=== PATIENT | female | born 1945 | race Caucasian/White ===

== ENCOUNTER 2016-10-27 23:56 | Observation (INO) | payer OTHER ==
[~2016-10-27] VITALS: Ht 162.6 cm; Wt 95.3 kg
[~2016-10-27 23:56] MED LIST: ADVAIR 250-501 EACH; BACTRIM DS TAB1 EACH PO; FUROSEMIDE20 M1; FUROSEMIDE40 M1; JANUVIA100 M1; LANTUS SOL100 UNIT/1; MONTELUKAST SOD10 M1; SIMVASTATIN20 M2; SPIRIVA18 MCG
--- NOTE | 2016-10-28 00:11 | NUR ---
71YO FEMALE TO RM 7 VIA STRETCHER FROM HOME W/CO FEELING WEAK TONITE. EMS REPORT THEY WERE CALLED TO PT'S APT EARLIER THIS EVENING TO ASSIST HER OFF THE TOILET. THEY ALSO STATE THEY WERE CALLED A 2ND TIME AND PT AGAIN WAS UNABLE TO RISE UP OFF THE TOILET, AND WHEN THEY STOOD HER SHE WAS UNBLE TO STAND ON HER OWN. FSBS = 70
[2016-10-28 00:35] LABS: ABSOLUTE BASOPHIL COUNT 0 /CUMM (0.0-0.2); ABSOLUTE EOSINOPHIL COUNT 0 /CUMM (0.0-0.7); ABSOLUTE GRANULOCYTE CT 16.2 /CUMM (1.4-6.5); ABSOLUTE LYMPH COUNT 1.3 /CUMM (1.2-3.4); ABSOLUTE MONOCYTE COUNT 0.8 /CUMM (0.10-0.60); BASOPHIL % 0.1 % (0.0-2.0); EOSINOPHIL % 0.1 % (0-5); GRANULOCYTE % 88.4 % (42.2-75.2); HEMATOCRIT 32.8 % (37-47); MEAN CORPUSCULAR HGB 26.5 PG (27.0-31.0); MEAN CORPUSCULAR HGB CONC 33.2 G/DL (33.0-37.0); MEAN CORPUSCULAR VOLUME 79.9 FL (81.0-99.0); MEAN PLATELET VOLUME 7.2 FL (7.4-10.4); PLATELET COUNT 504 /CUMM (130-400); RBC DISTRIBUTION WIDTH 14.6 % (11.5-14.5); WHITE BLOOD CELL COUNT 18.3 /CUMM (4.8-10.8)
--- NOTE | 2016-10-28 01:24 | NUR ---
URINE TRIO SENT
--- NOTE | 2016-10-28 01:26 | RADIOLOGY REPORT ---
EXAMINATION: XR PORTABLE CHEST CLINICAL INFORMATION: Weakness and cough. COMPARISON: Chest x-ray July 28, 2016. TECHNIQUE: Portable AP view of the chest was obtained. FINDINGS: Low lung volumes. Examination is limited by technique, particularly the retrocardiac region were there is obscuring soft tissue versus airspace disease. No pleural effusion and pneumothorax. Cardiac silhouette size is likely normal accounting for technique. IMPRESSION: Technically limited study demonstrating significantly decreased lung volumes. Probable soft tissues obscure the retrocardiac region and can be correlated with a lateral view to ensure that there is no true pulmonary airspace disease.
--- NOTE | 2016-10-28 02:30 | NUR ---
SLEEPING SHORT PERIODS.
--- NOTE | 2016-10-28 02:46 | ED AMS/SEIZURE/WEAK/DIZZY ---
See Addendum History of Present Illness General Chief Complaint: General Adult Stated Complaint: BIBA GENERAL WEAKNESS Source: patient, old records Exam Limitations: no limitations Allergies Coded Allergies: ketorolac (From TORADOL) (Mild, "FEVER AND CHILLS" 10/28/16) raspberry (UNKNOWN 10/28/16) Uncoded Allergies: TIDE DETERGENT (03/21/11) Reconcile Medications Fluticasone/Salmeterol (Advair 250-50 Diskus) 250 MCG-50 MCG/DOSE BLST.W.DEV ASTHMA (Reported) Furosemide 20 MG TABLET HIGH BLOOD PRESSURE (Reported) Furosemide 40 MG TABLET HIGH BLOOD PRESSURE (Reported) Insulin Glargine,Hum.rec.anlog (Lantus Solostar) 100 UNIT/ML (3 ML) INSULN.PEN DIABETES (Reported) Montelukast Sodium 10 MG TABLET ASTHMA (Reported) Simvastatin (Simvastatin*) 20 MG TABLET HIGH CHOLESTROL (Reported) Sitagliptin Phosphate (Januvia) 100 MG TABLET DIABETES (Reported) Sulfamethoxazole/Trimethoprim (Bactrim Ds Tablet) 800 MG-160 MG TABLET 1 TAB PO BID CELLULITIS Tiotropium Phoenix (Spiriva) 18 MCG CAP.W.DEV ASTHMA (Reported) Triage Note: 71YO FEMALE TO RM 7 VIA STRETCHER FROM HOME W/CO FEELING WEAK TONITE. EMS REPORT THEY WERE CALLED TO PT'S APT EARLIER THIS EVENING TO ASSIST HER OFF THE TOILET. THEY ALSO STATE THEY WERE CALLED A 2ND TIME AND PT AGAIN WAS UNABLE TO RISE UP OFF THE TOILET, AND WHEN THEY STOOD HER SHE WAS UNBLE TO STAND ON HER OWN. FSBS = 70 Triage Nurses Notes Reviewed? yes HPI: Patient presents for evaluation of generalized weakness. Patient states that twice she couldn't get up off the toilet. In addition she is complaining of nasal congestion but denies fever or other cold symptoms, cough, UTI symptoms or abdominal pain. Patient also takes Tylenol typically for bilateral leg and foot pains. (CARLOS GARCIA,VASILIY Gomez) Vital Signs & Intake/Output Vital Signs & Intake/Output Vital Signs Date Time Temp Pulse Resp B/P Pulse O2 O2 Flow FiO2 Ox Delivery Rate 10/29 1323 96.4 84 20 160/90 99 Room Air 10/29 1016 70 20 191/89 96 Nasal 2.0L Cannula 10/29 0838 98.0 74 20 188/90 10/29 0634 98 Nasal Cannula 10/29 0532 97.6 70 18 132/76 96 Nasal 2.0L Cannula 10/29 0259 97.6 68 18 130/78 98 Nasal 2.0L Cannula 10/29 0009 97.3 72 18 126/80 98 Nasal 2.0L Cannula 10/28 2149 97.2 68 18 116/81 100 Room Air 10/28 1858 97.6 97 15 134/64 98 Room Air Room Air 10/28 1618 76 18 139/55 98 Nasal 2.0L Cannula ED Intake and Output 10/29 0000 10/28 1200 Intake Total 1000 Output Total 700 Balance 300 Intake, IV 1000 Output, Urine 700 Patient 210 lb Weight Past History Travel History Traveled to [place] past 21 day No Medical History Any Pertinent Medical History? see below for history Cardiovascular: hypertension Respiratory: asthma Endocrine: diabetes Surgical History Surgical History: non-contributory Psychosocial History What is your primary language Albanian Tobacco Use: Refused to answer Family History Hx Contributory? No (CARLOS GARCIA,VASILIY Gomez) Review of Systems Review of Systems Constitutional: Reports: weakness. EENTM: Reports: no symptoms. Respiratory: Reports: no symptoms. Cardiovascular: Reports: no symptoms. GI: Reports: no symptoms. Genitourinary: Reports: no symptoms. Musculoskeletal: Reports: no symptoms. Skin: Reports: no symptoms. Neurological/Psychological: Reports: no symptoms. Hematologic/Endocrine: Reports: no symptoms. Immunologic/Allergic: Reports: no symptoms. All Other Systems: Reviewed and Negative (CARLOS GARCIA,VASILIY Gomez) Physical Exam Physical Exam General Appearance: SEE BELOW Comments: Gen.: Well-nourished, well-developed, no acute respiratory distress. Head: Normocephalic, atraumatic. Eyes: Normal inspection bilaterally Ears: Normal inspection bilaterally Nose: Normal inspection Throat/mouth : Moist mucosa Neck: Supple, full range of motion, no goiter Heart: Regular rate and rhythm, no murmurs rubs or gallops Lungs: Clear to auscultation bilaterally with normal air entry Chest: Nontender Back: Normal range of motion Abdomen: Soft, nontender, nondistended, normal bowel sounds Extremities: Normal range of motion grossly, equal radial pulses, bilateral lower extremity edema with wraps in place Neurologic: Cranial nerves grossly intact, speech is clear Skin: warm and dry Psychiatric: Calm, cooperative, no apparent delusions or hallucinations Core Measures ACS in differential dx? No CVA/TIA Diagnosis: No Severe Sepsis Present: No Septic Shock Present: No (CARLOS GARCIA,VASILIY Gomez) Progress Differential Diagnosis: anemia, electrolyte imbalance, hypoglycemia, hypoxia, UTI/pyelo Diagnostic Imaging: Discussed w/RAD: Radiology Read. CXR Impression: PATIENT: CHLOE DYKES PRESENT AGE: 71 PATIENT ACCOUNT NO: [id number] : 44 LOCATION: ER ORDERING PHYSICIAN: VASILIY SAN MD SERVICE DATE: 10/28/16 EXAM TYPE: RAD - XRY-PORTABLE CHEST XRAY EXAMINATION: XR PORTABLE CHEST CLINICAL INFORMATION: Weakness and cough. COMPARISON: Chest x-ray July 28, 2016. TECHNIQUE: Portable AP view of the chest was obtained. FINDINGS: Low lung volumes. Examination is limited by technique, particularly the retrocardiac region were there is obscuring soft tissue versus airspace disease. No pleural effusion and pneumothorax. Cardiac silhouette size is likely normal accounting for technique. IMPRESSION: Technically limited study demonstrating significantly decreased lung volumes. Probable soft tissues obscure the retrocardiac region and can be correlated with a lateral view to ensure that there is no true pulmonary airspace disease. DICTATED BY: VASILIY ROSA MD DATE/TIME DICTATED:10/28/16120 SERVICE BAR CASHIER:MAHSA DATE/TIME TRANSCRIBED:10/28/16120 CONFIDENTIAL, DO NOT COPY WITHOUT APPROPRIATE AUTHORIZATION. <Electronically signed in Other Vendor System> SIGNED BY: VASILIY ROSA MD 10/28/16125 Initial ED EKG: NSR, rate (81), POOR R WAVE PROGRESSION Prior EKG: unchanged Comments: 10/28/2016 6:00:42 AM Grisel has had an uneventful emergency department stay. White blood cell count has improved. She has not spiked a fever here in the emergency department. Appears to be no clinical indication of an infection. The cause of the patient's elevated white blood cell count is unclear at this point although she does take inhaled steroid and appears to have been placed on betamethasone and antifungal cream recently. 10/28/2016 7:21:44 AM patient signed out to Dr. Smith at shift slip box changer. 10/29/2016 3:10:10 PM patient accepted in transfer to an extended care facility. (CARLOS GARCIA,VASILIY Gomez) Plan of Care: Orders Procedure Date/time Status Discharge Patient 10/29 1517 Active Skin/Pressure Ulcer Assess (Sk 10/29 0858 Active Theraputic Activities 15 Min 10/29 UNK Complete Gait Training, 15 Min 10/29 UNK Complete PT EVAL LOW COMPLEX 20 MIN 10/29 UNK Complete Intake & Output 10/28 0402 Active FingerStick- Glucose 10/28 0004 Active Radiology Impression: PATIENT: CHLOE DYKES PRESENT AGE: 71 PATIENT ACCOUNT NO: [id number] : 44 LOCATION: ER ORDERING PHYSICIAN: VASILIY SAN MD SERVICE DATE: 10/28/16 EXAM TYPE: RAD - XRY-LUMBOSACRAL SPINE AP & LAT EXAMINATION: XR LUMBOSACRAL SPINE CLINICAL INFORMATION: Low back pain. COMPARISON: None TECHNIQUE: AP and lateral views of the lumbosacral spine were obtained. FINDINGS: There is normal lumbar lordosis. Grade 1 anterolisthesis L4 over L5 is noted. Rest of the vertebral alignment is normal. Loss of L5-S1 and L2-L3 disc height is seen with mild ventral spondylosis. No visible acute fracture, dislocation or lytic process seen. IMPRESSION: Degenerative disc changes L5-S1, L2-L3 disc level. No visible acute fracture, dislocation or lytic process seen. DICTATED BY: KATE GIMENEZ MD DATE/ TIME DICTATED:10/28/16805 SERVICE BAR CASHIER:MAHSA DATE/TIME TRANSCRIBED: 10/28/16805 CONFIDENTIAL, DO NOT COPY WITHOUT APPROPRIATE AUTHORIZATION. < Electronically signed in Other Vendor System> SIGNED BY: KATE GIMENEZ MD 811, PATIENT: CHLOE DYKES PRESENT AGE: 71 PATIENT ACCOUNT NO: [id number] : 44 LOCATION: [facility] ORDERING PHYSICIAN: SEAMUS SMITH MD SERVICE DATE: 10/28/16 EXAM TYPE: CAT - CT LUMB SPINE W IV CONTRAST EXAMINATION: CT LUMBAR SPINE WITH CONTRAST CLINICAL INFORMATION: Low back pain, fever and leukocytosis. COMPARISON: Lumbar spine exam 10/28/2016 TECHNIQUE: 2.5 mm thin axial and 2 mm thin reconstructed sagittal and coronal images of lumbar spine were obtained following IV 93 mL Optiray 320. DLP: 1078 mGy-cm FINDINGS: On sagittal reconstructed images there is normal lumbar lordosis. There is a grade 1 anterolisthesis L4 over L5. Rest of the vertebral alignment is normal. Loss of L5-S1 disc height with vacuum disc phenomena is noted at L5-S1 and L2-L3 disc level. The L1-L2, L2-L3 and L3-L4 disc levels are unremarkable. No focal disc herniation, spinal stenosis abnormality seen. The neural foramina are widely patent. At L4-L5 disc level there is a broad-based diffuse pseudo disc bulge with bilateral facet joint and ligamentum flavum hypertrophy resulting in mild to moderate canal stenosis. The neural foramina however appear patent. At L5-S1 disc level there is no signal disc bulge, herniation or spinal stenosis. The neural foramina are patent. The paravertebral soft tissues are normal. No abnormal enhancing mass or abscess seen. There is no lytic or sclerotic process identified. Incidentally noted is a vertical bilateral sacral stress fracture involving S1 and S2 vertebra. IMPRESSION: Bilateral S1 and S2 stress fractures of the sacrum. Recommend bone scan 4 confirmation. Grade 1 anterolisthesis L4 over L5 with diffuse pseudo disc bulge resulting in moderate canal stenosis. There is bilateral facet joint arthropathy at this disc level. Degenerative disc changes with vacuum disc phenomena at L5-S1 disc level. DICTATED BY: KATE GIMENEZ MD DATE/TIME DICTATED: 10/28/161041 SERVICE BAR CASHIER:MAHSA DATE/TIME TRANSCRIBED:10/28/161041 CONFIDENTIAL, DO NOT COPY WITHOUT APPROPRIATE AUTHORIZATION. <Electronically signed in Other Vendor System> SIGNED BY: KATE GIMENEZ MD 10/28/16 1055 Hand-Off Endorsed To: JOYCE HORTON MD Endorsed Time: 190 Pending: consult (PT, CASE MANAGEMENT) Comments: PT STILL HAS SEVERE LOW BACK PAIN. SHE HAS LEUKOCYTOSIS. SHE STATES THAT HER LEGS STILL FEEL VERY WEAK. THERE WAS NO RELIEF FROM MORPHINE. WILL CHECK CT SCAN. (JEANNE GARCIA,SEAMUS Chu) Hand-Off Endorsed To: VASILIY SAN MD Endorsed Time: 07 Pending: consult (JOYCE HORTON MD) Departure Departure Disposition: ACUTE REHAB FACILITY Condition: Stable Clinical Impression Primary Impression: Back pain Secondary Impressions: Anemia Qualifiers: Anemia type: unspecified type Qualified Code: D64.9 - Anemia, unspecified Leukocytosis Qualifiers: Leukocytosis type: unspecified Qualified Code: D72.829 - Elevated white blood cell count, unspecified Referrals: HELGA GARCIA,EMMA Ferreira (PCP/Family) Additional Instructions: Follow-up with your primary care doctor this week for monitoring of your elevated white blood cell count (hematology referral might be necessary). Maintain a good fluid intake. Return if fever or any other concerns or worsening. Please note that there might be incidental findings in your evaluation that are unrelated to the current emergency department visit. Please notify your primary care doctor about this emergency department visit in order to obtain and review all of the testing performed so that these incidental findings can be monitored as needed. If you had an x-ray performed, please understand that some fractures may not be seen on the initial set of x-rays. If your symptoms persist you might need a repeat set of x-rays to check for such a fracture. If you had a laceration evaluated, please understand that foreign bodies such as glass or wood may not be visible to the naked eye or on plain x-rays. If the wound becomes red, swollen, increasingly more painful or if there is any drainage from the wound, please have it reevaluated by a physician for the possibility of a retained foreign body. Thank you for choosing the [facility] Emergency Department for your care. It was a pleasure to serve you today. Vasiliy San M.D. [facility] Departure Forms: Customer Survey General Discharge Information (CARLOS GARCIA,VASILIY Gomez) ED Attending Observation Observation Discharge: I have reevaluated CHLOE DYKES on 10/29/16 at 1510. The patient is: (): Stable for discharge ([x]): To be admitted to Nursing Floor (): To be placed in Observation on Nursing Floor (): For transfer to other facility The patient was being observed for intractable pain, generalized weakness As a result of that observation, I have determined the patient is stable for transfer to a nursing facility/rehabilitation center. (CARLOS GARCIA,VASILIY Gomez) Initial Observation Note: I have seen and personally examined CHLOE DYKES on 10/28/16 at 1154. I agree with the current emergency department documentation. The disposition (admission or discharge) is uncertain at this time, she needs a period of observation for the following reason(s): [Patient has stress fractures through S1 and S2. Patient will require PT evaluation. Patient is requiring IV pain medications. Patient is a diabetic so we will need to follow her fingersticks.] The ED Nurse caring for this patient has been personally informed as to what the patient is being observed for. Observation Re-Evaluation: I have reevaluated CHLOE DYKES on 10/28/16 at 1710. The physical findings that support the continued need to observe this patient include [PT CONTINUES TO HAVE BACK PAIN BUT MORE COMFORTABLE IN HOSPITAL BED. LUNGS CTA B/L, CARDIAC RRR, NO MURMUR.]. (JEANNE GARCIA,SEAMUS Chu) Thank you for choosing the [facility] Emergency Department for your care. It was a pleasure to serve you today. Vasiliy San M.D. [facility] Departure Forms: Customer Survey General Discharge Information (CARLOS GARCIA,VASILIY Gomez) Departure Disposition: STILL A PATIENT Clinical Impression Primary Impression: Sacral fracture, closed Secondary Impressions: Anemia Qualifiers: Anemia type: unspecified type Qualified Code: D64.9 - Anemia, unspecified Leukocytosis Qualifiers: Leukocytosis type: unspecified Qualified Code: D72.829 - Elevated white blood cell count, unspecified (JEANNE GARCIA,SEAMUS Chu) ED Attending Observation Initial Observation Note: I have seen and personally examined CHLOE DYKES on 10/28/16 at 1154. I agree with the current emergency department documentation. The disposition (admission or discharge) is uncertain at this time, she needs a period of observation for the following reason(s): [Patient has stress fractures through S1 and S2. Patient will require PT evaluation. Patient is requiring IV pain medications. Patient is a diabetic so we will need to follow her fingersticks.] The ED Nurse caring for this patient has been personally informed as to what the patient is being observed for. Observation Re-Evaluation: I have reevaluated CHLOE DYKES on 10/28/16 at 1710. The physical findings that support the continued need to observe this patient include [PT CONTINUES TO HAVE BACK PAIN BUT MORE COMFORTABLE IN HOSPITAL BED. LUNGS CTA B/L, CARDIAC RRR, NO MURMUR.]. (JEANNE GARCIA,SEAMUS Chu)
--- NOTE | 2016-10-28 03:55 | NUR ---
AWAKE. CO BACK PAIN 6/10 AND FEELING HUNGRY.
--- NOTE | 2016-10-28 04:04 | NUR ---
SLEEPING AT THIS TIME.
--- NOTE | 2016-10-28 04:42 | NUR ---
REPEAT CBC SENT TO LAB. PT SLEEPING WITH REGULAR RR AT THIS TIME. NO ACUTE DISTRESS NOTED.
[2016-10-28 04:59] LABS: ABSOLUTE BASOPHIL COUNT 0.1 /CUMM (0.0-0.2); ABSOLUTE EOSINOPHIL COUNT 0 /CUMM (0.0-0.7); ABSOLUTE GRANULOCYTE CT 13.4 /CUMM (1.4-6.5); ABSOLUTE LYMPH COUNT 2.1 /CUMM (1.2-3.4); ABSOLUTE MONOCYTE COUNT 1.4 /CUMM (0.10-0.60); BASOPHIL % 0.3 % (0.0-2.0); EOSINOPHIL % 0.1 % (0-5); GRANULOCYTE % 79.3 % (42.2-75.2); HEMATOCRIT 28.6 % (37-47); MEAN CORPUSCULAR HGB 26.3 PG (27.0-31.0); MEAN CORPUSCULAR HGB CONC 32.6 G/DL (33.0-37.0); MEAN CORPUSCULAR VOLUME 80.8 FL (81.0-99.0); MEAN PLATELET VOLUME 7.1 FL (7.4-10.4); PLATELET COUNT 459 /CUMM (130-400); RBC DISTRIBUTION WIDTH 14.7 % (11.5-14.5); RED BLOOD CELL CT 3.54 /CUMM (4.20-5.40); WHITE BLOOD CELL COUNT 16.9 /CUMM (4.8-10.8)
--- NOTE | 2016-10-28 06:42 | NUR ---
FINGERSTICK GLUCOSE LEVEL READING 80
--- NOTE | 2016-10-28 06:49 | NUR ---
ATTEMPTED TO SIT PT. WITH ANY CHANGE IN POSITION, PT SCREAMS THAT SHE IS HAVING PAIN "JUST ABOVE MY BUTTOCKS" DR GONZALEZ AWARE. PT DENIES ANY FALL.
--- NOTE | 2016-10-28 07:27 | NUR ---
PT GIVEN MORPHINE PER EMAR.
--- NOTE | 2016-10-28 07:35 | NUR ---
CARE ASSUMED BY THIS RN NOW. ATTEMPTED TO ASSESS PATIENT AND TURN AND REPOSITION, PT SCREAMING AND NOT REDIRECTABLE. REFUSING TO LET THIS RN MOVE PATIENT FOR FULL BODY ASSESSMENT. DR. ANGEL AWARE OF PT'S PAIN.
--- NOTE | 2016-10-28 07:38 | NUR ---
PT TO XRAY VIA STRETCHER NOW.
--- NOTE | 2016-10-28 08:04 | NUR ---
PT PROVIDED BREAKFAST TRAY. PT REPORTS STILL HAVING PAIN.
--- NOTE | 2016-10-28 08:12 | RADIOLOGY REPORT ---
EXAMINATION: XR LUMBOSACRAL SPINE CLINICAL INFORMATION: Low back pain. COMPARISON: None TECHNIQUE: AP and lateral views of the lumbosacral spine were obtained. FINDINGS: There is normal lumbar lordosis. Grade 1 anterolisthesis L4 over L5 is noted. Rest of the vertebral alignment is normal. Loss of L5-S1 and L2-L3 disc height is seen with mild ventral spondylosis. No visible acute fracture, dislocation or lytic process seen. IMPRESSION: Degenerative disc changes L5-S1, L2-L3 disc level. No visible acute fracture, dislocation or lytic process seen.
--- NOTE | 2016-10-28 09:52 | NUR ---
PT TO CT SCAN VIA STRETCHER AT THIS TIME.
--- NOTE | 2016-10-28 10:55 | CT SCAN REPORT ---
EXAMINATION: CT LUMBAR SPINE WITH CONTRAST CLINICAL INFORMATION: Low back pain, fever and leukocytosis. COMPARISON: Lumbar spine exam 10/28/2016 TECHNIQUE: 2.5 mm thin axial and 2 mm thin reconstructed sagittal and coronal images of lumbar spine were obtained following IV 93 mL Optiray 320. DLP: 1078 mGy-cm FINDINGS: On sagittal reconstructed images there is normal lumbar lordosis. There is a grade 1 anterolisthesis L4 over L5. Rest of the vertebral alignment is normal. Loss of L5-S1 disc height with vacuum disc phenomena is noted at L5-S1 and L2-L3 disc level. The L1-L2, L2-L3 and L3-L4 disc levels are unremarkable. No focal disc herniation, spinal stenosis abnormality seen. The neural foramina are widely patent. At L4-L5 disc level there is a broad-based diffuse pseudo disc bulge with bilateral facet joint and ligamentum flavum hypertrophy resulting in mild to moderate canal stenosis. The neural foramina however appear patent. At L5-S1 disc level there is no signal disc bulge, herniation or spinal stenosis. The neural foramina are patent. The paravertebral soft tissues are normal. No abnormal enhancing mass or abscess seen. There is no lytic or sclerotic process identified. Incidentally noted is a vertical bilateral sacral stress fracture involving S1 and S2 vertebra. IMPRESSION: Bilateral S1 and S2 stress fractures of the sacrum. Recommend bone scan 4 confirmation. Grade 1 anterolisthesis L4 over L5 with diffuse pseudo disc bulge resulting in moderate canal stenosis. There is bilateral facet joint arthropathy at this disc level. Degenerative disc changes with vacuum disc phenomena at L5-S1 disc level.
--- NOTE | 2016-10-28 11:10 | NUR ---
PT MEDICATED WITH VALIUM PER EMAR. PT TOLERATED WELL.
--- NOTE | 2016-10-28 11:33 | NUR ---
Case Mgmnt TSF: Preemptively doing paperwork for possibility of STR. Once all testing and labs are back, I will speak with Dr. Smith and patient about plan of care going forward. Patient unable to even move with nursing due to pain. I have completed: Attestation (faxed & confirmation), Common mikayla and CM assessment. I am continuing to work on other paperwork. CM continuing to follow.
--- NOTE | 2016-10-28 11:37 | NUR ---
PT PROVIDED LUNCH TRAY.
--- NOTE | 2016-10-28 11:45 | NUR ---
Case Mgmnt TSF: I went in and introduced myself to patient. I gave her a brochure with my card in it. I also gave her a list of facilities in case we do need to send her to a STR. Patient's [facility]: [facility]) [facility]; 2) [facility] and 3) [facility]. I am completing other paperwork in case STR is recommended. Patient is in agreement. CM continuing to follow.
--- NOTE | 2016-10-28 11:46 | NUR ---
POC: PT TO BE AN ED OBSERVATION FOR PAIN MANAGEMENT TO BE UNDER CONTROL FOR PT EVAL IN THE MORNING AND POTENTIAL TO BE PLACED IN SHORT TERM REHAB.
--- NOTE | 2016-10-28 13:10 | NUR ---
Case Mgmnt TSF: I went back in to see patient. She had friends in the room with her. Patient would like to change her possible STR choices. New choices are as follows: 1) [facility], [facility]) [facility], 3) [facility]. CM continuing to follow.
--- NOTE | 2016-10-28 13:27 | NUR ---
PT MEDICATED WITH DAILY MEDS PER EMAR.
--- NOTE | 2016-10-28 15:43 | NUR ---
PT MOVED TO HOSPITAL BED. TOLERATED WELL. PT MEDICATED WITH LANTUS PER EMAR.
--- NOTE | 2016-10-28 16:17 | NUR ---
PT MEDICATED WITH 1MG IV DIALUDID PER ORDER AT THIS TIME FOR PAIN 06/11.
--- NOTE | 2016-10-28 17:30 | NUR ---
Case Mgmnt TSF: I have completed MIMR and remaining paperwork for patient. We are pending state approval and then we have to get a facility to accept patient. We are also pending a PT eval for patient. We will continue to follow tomorrow. We will update nursing and MD.
--- NOTE | 2016-10-28 18:59 | NUR ---
PT MEDICATED WITH PERCOCET PER ORDER AT THIS TIME. PT REPOSITONED IN BED AND WATCHING TV.
--- NOTE | 2016-10-28 20:01 | NUR ---
PT RESTING ON STRETCHER WATCHING TELEVISION. NO APPARENT DISTRESS NOTED.
--- NOTE | 2016-10-28 22:02 | NUR ---
PHARMACY CALLED FOR MEDICATION.
--- NOTE | 2016-10-29 00:09 | NUR ---
PT RESTING ON BED AND REQUESTS FOR TELEVISION TO BE TURNED OFF AT THIS TIME.
--- NOTE | 2016-10-29 02:59 | NUR ---
PT REPOSITIONED IN BED.
--- NOTE | 2016-10-29 05:32 | NUR ---
PT RESTING ON BED. NORMAL RR NOTED. WILL CONTINUE TO MONITOR.
--- NOTE | 2016-10-29 07:15 | NUR ---
ASSUMED CARE, PT SLEEPING, RESPIRATIONS NON-LABORED.
--- NOTE | 2016-10-29 08:20 | NUR ---
AWAKE, REQUESTING BEDPAN, HAS DIFFICULTY TURNING IN BED, HAS RED, TOILET SHAPED RING WITH AREAS OF BROWN NOTED ON BUTTOCKS, UPPER THIGHS, HAS 3/4 INCH OPEN AREA ON LEFT BUTTOCK, AREA IS PINK. BARRIER CREAM APPLIED TO BUTTOCKS.
--- NOTE | 2016-10-29 08:44 | NUR ---
REQUESTING MEDICATION FOR PAIN. GIVEN 1 PERCOCET CRUSHED IN APPLESAUCE.
--- NOTE | 2016-10-29 09:00 | NUR ---
PT CONFUSED TO DATE, THINKS IT IS OCTOBER 31. RE-ORIENTED TO DATE. UNDERSTANDS NEED FOR SHORT TERM REHAB.
--- NOTE | 2016-10-29 09:15 | NUR ---
BILATERAL LOWER LEG DRESSINGS INTACT, STATES THEY ARE CHANGED WEEKLY BY HER VASCULAR SURGEON.
--- NOTE | 2016-10-29 09:15 | NUR ---
REFUSING DRESSING CHANGE AT THIS TIME.
--- NOTE | 2016-10-29 09:25 | NUR ---
PHYSICAL THERAPY AT BEDSIDE FOR EVAL
--- NOTE | 2016-10-29 09:29 | NUR ---
PHYSICAL THERAPY HERE TO EVALUATE.
--- NOTE | 2016-10-29 09:57 | NUR ---
PT REQUESTING BENADRYL, STATES SHE TAKES IT EVERYDAY FOR ALLERGIES, DR. GONZALEZ AWARE.
--- NOTE | 2016-10-29 10:00 | NUR ---
AM MEDS GIVEN.
--- NOTE | 2016-10-29 10:22 | NUR ---
CASE MANAGEMENT (RYLEE) SPEAKING WITH PATIENT.
--- NOTE | 2016-10-29 10:33 | NUR ---
CASE MANAGEMENT-PT HAS BEEN ACCEPTED AT [facility]. PATIENT REALLY WANTED [facility] BUT I EXPLAINED TO HER THAT THEY CURRENTLY DO NOT HAVE AN AVAILBLE BED FOR HER. HAVE PLACED CALL TO [facility] SO PATIENT CAN ACCEPT HER BED. WILL AWAIT CALL BACK AND KEEP ALL INFORMED.
--- NOTE | 2016-10-29 10:34 | NUR ---
CASE MANAGEMENT-ASKED PATIENT IF I COULD CALL HER SON AND SHE STATED THAT I COULD NOT BECAUSE HE IS NOT INVOLVED IN HER CARE.
--- NOTE | 2016-10-29 11:49 | NUR ---
VOIDED IN BEDPAN, 450 ML. MEDICATED FOR PAIN WITH DILAUDID 1 MG IV.
--- NOTE | 2016-10-29 12:32 | NUR ---
MULTIPLE FAMILY MEMBERS AT BEDSIDE, PT STATING PAIN IS IMPROVED, LAUGHING AND TALKING WITH FAMILY MEMBERS.
--- NOTE | 2016-10-29 14:31 | NUR ---
VOIDED ON BEDPAN, 500 ML.
--- NOTE | 2016-10-29 14:45 | NUR ---
Case Mgmnt TSF: Patient had accepted bed at [facility] earlier. I went in and let patient know that we would be sending her over to the facility shortly. Patient is aware and I asked if I could call her son to update and she did not want him updated. She states that her friend Parmjit is aware as he was here earlier this morning. Envelope put together, w10 filled out and all cm portion in envelope. [place] is going to call report to facility. Patient will be set up for stretcher by unit manager rn. I also updated admissions that patient had and appointment this on 11/01 @ 0900am with Dr. Medina (vascular). I wrote the information on the W10 and updated Caity PEARCE and she will also give information verbally for report. CM portion complete.
[2016-10-29 15:53] VITALS: BP 143/96
--- NOTE | 2016-10-29 16:01 | NUR ---
[facility] BOOKED FOR TRANSPORT TO [facility].
--- NOTE | 2016-10-29 16:05 | NUR ---
REPORT TO [facility].
== END 2016-10-29 16:45 ==
LOC: ERH 23:56 → ERHI 10-28 11:49
PROVIDERS: Emergency Medicine; ADMIT Emergency Medicine
DX: R53.1 Weakness (principal); M51.86 Other intervertebral disc disorders, lumbar region; M48.06 Spinal stenosis, lumbar region; D64.9 Anemia, unspecified; D72.829 Elevated white blood cell count, unspecified; I10 Essential (primary) hypertension; J45.909 Unspecified asthma, uncomplicated; E11.9 Type 2 diabetes mellitus without complications
CPT/HCPCS: 72100; 81001; 87804; 87804-59; 93005; 93010; 96374; 96375; 96376; 97116-GP; 97161-GP; 97530-GP; G0378; G8978-GP; G8979-GP; G8980-GP; J0131; J1885; J2405; J3360; J3490

== ENCOUNTER 2018-01-11 17:16 | Inpatient (IN) | payer OTHER ==
[~2018-01-11] VITALS: Ht 157.5 cm; Wt 105.7 kg
[~2018-01-11 17:16] MED LIST changes: -FUROSEMIDE40 M1; +FUROSEMIDE40 M1 PO; -JANUVIA100 M1; +JANUVIA100 M1 PO; -LANTUS SOL100 UNIT/1; +LANTUS SOL100 UNIT/1 SC; -MONTELUKAST SOD10 M1; +MONTELUKAST SOD10 M1 PO; +PREDNISONE10 M2 PO; -SIMVASTATIN20 M2; +SIMVASTATIN20 M2 PO; -SPIRIVA18 MCG; +SPIRIVA18 MCG IH; +VENTOLIN HFA18 GM INH; +ZITHROMAX500 M2 PO
--- NOTE | 2018-01-11 18:04 | ED GENERAL ADULT ---
History of Present Illness General Chief Complaint: Lower Extremity Problems Stated Complaint: BILATERAL LEG SWELLING Source: patient, family Exam Limitations: no limitations Vital Signs & Intake/Output Vital Signs & Intake/Output Vital Signs Date Time Temp Pulse Resp B/P B/P Pulse O2 O2 Flow FiO2 Mean Ox Delivery Rate 01/116 97.8 75 20 148/76 98 Nasal 2.0L Cannula 01/11 1944 100 22 138/78 96 Room Air 01/11 1750 86 Room Air 01/11 1740 97.9 99 24 156/89 86 Room Air Allergies Coded Allergies: ketorolac (From TORADOL) (Mild, "FEVER AND CHILLS" 10/28/16) raspberry (UNKNOWN 10/28/16) Uncoded Allergies: TIDE DETERGENT (03/21/11) Reconcile Medications Albuterol Sulfate (Ventolin Hfa) 90 MCG HFA.AER.AD 2 PUF INH Q4-6 PRN PRN SHORTNESS OF BREATH Azithromycin (Zithromax) 500 MG TABLET 1 TAB PO DAILY COPD Fluticasone/Salmeterol (Advair 250-50 Diskus) 250 MCG-50 MCG/DOSE BLST.W.DEV ASTHMA (Reported) Furosemide 20 MG TABLET HIGH BLOOD PRESSURE (Reported) Furosemide 40 MG TABLET HIGH BLOOD PRESSURE (Reported) Insulin Glargine,Hum.rec.anlog (Lantus Solostar) 100 UNIT/ML (3 ML) INSULN.PEN DIABETES (Reported) Montelukast Sodium 10 MG TABLET ASTHMA (Reported) Prednisone 10 MG TABLET 1 TAB PO BID INFLAMMATION DAY1/DAY2 FOUR TABS DAY3/DAY4 THREE TABS DAY5/DAY6 TWO TABS DAY7 ONE TAB Simvastatin (Simvastatin*) 20 MG TABLET HIGH CHOLESTROL (Reported) Sitagliptin Phosphate (Januvia) 100 MG TABLET DIABETES (Reported) Sulfamethoxazole/Trimethoprim (Bactrim Ds Tablet) 800 MG-160 MG TABLET 1 TAB PO BID CELLULITIS Tiotropium [place] (Spiriva) 18 MCG CAP.W.DEV ASTHMA (Reported) Triage Note: PT BIBA FROM HOME WITH C/O NEW OR WORSENING BLEE. PER EMS, PT HAS HX OF BLEE, BUT TODAY VISITING NURSE NOTED WEEPING TO LEGS, TOLD PT SHE'S "HAVE A DOCTOR LOOK AT IT", AND CALLED FOR AMBULANCE. EN ROUTE, PT VSS. HOWEVER, O2 SAT DROPPED FROM MID-90s TO MID-80s WITH CHANGE OF POSITION. PT DENIES SOB AND CP AND VERBALIZES NO COMPLAINT OTHER THAN WEEPING LEGS Triage Nurses Notes Reviewed? yes Onset: Abrupt Duration: week(s): (1), constant, continues in ED, getting worse Timing: single episode today Injury Environment: home Severity: moderate, severe Severity Numbers: 7 No Modifying Factors: none Associated Symptoms: cough LMP (ages 10-50): post menopausal, unknown : No Patient currently breastfeeds: No HPI: 72-year-old female past medical history of COPD, diabetes, hypertension, hyperlipidemia presents for evaluation of worsening lower extremity edema. Patient reports that she has had gradually worsening swelling in her legs of the past several days to weeks. She states that today she noticed that her legs were leaking clear fluid. This never happened before. She is on oral Lasix and has been taking as directed. She denies any other concerns but is visibly dyspneic on exam. She is a former smoker. She denies chest pain. She does report cough. No hemoptysis no fever no abdominal pain. She's been using her nebulizers and inhalers as directed. She denies any history of heart failure. (Tre Joshi) Past History Travel History Traveled to [place] past 21 day No Medical History Any Pertinent Medical History? 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 No (Tre Joshi) Review of Systems Review of Systems Constitutional: Reports: no symptoms. EENTM: Reports: no symptoms. Respiratory: Reports: see HPI, cough, short of breath, wheezing. Cardiovascular: Reports: see HPI, peripheral edema. GI: Reports: no symptoms. Genitourinary: Reports: no symptoms. Musculoskeletal: Reports: no symptoms. Skin: Reports: no symptoms. Neurological/Psychological: Reports: no symptoms. Hematologic/Endocrine: Reports: no symptoms. Immunologic/Allergic: Reports: no symptoms. All Other Systems: Reviewed and Negative (Tre Joshi) Physical Exam Physical Exam General Appearance: well developed/nourished, no apparent distress, alert, awake Head: atraumatic, normal appearance Eyes: Bilateral: normal appearance, PERRL, EOMI. Ears, Nose, Throat: normal pharynx, normal ENT inspection, hearing grossly normal Neck: normal inspection, supple, full range of motion Respiratory: chest non-tender, no respiratory distress, quiet respiration, decreased breath sounds, crackles, wheezing Cardiovascular: regular rate/rhythm, edema, normal peripheral pulses Peripheral Pulses: 2+ radial (R), 2+ radial (L) Gastrointestinal: soft, non-tender Back: normal inspection, normal range of motion, no vertebral tenderness Extremities: normal range of motion, there is bilateral lower extremity edema nonpitting firm edema with weeping venous stasis dermatitis and erythema. No focal fluctuant areas or purulent discharge noted no tenderness to palpation Neurologic/Psych: no motor/sensory deficits, awake, alert, oriented x 3 Skin: intact, normal color, warm/dry Lymphatic: no anterior cervical robert Core Measures ACS in differential dx? No CVA/TIA Diagnosis: No Sepsis Present: No Sepsis Focused Exam Completed? No (Casey DICKENS,Tre) Progress Differential Diagnoses I considered the following diagnoses in my evaluation of the patient: [COPD exacerbation, CHF exacerbation, pneumonia, PE, acute coronary syndrome, acute bronchitis, asthma exacerbation] Plan of Care: Orders Procedure Date/time Status Regular Diet 01/12 B Active CBC WITHOUT DIFFERENTIAL 01/12 0600 Active BASIC ELECTROLYTES PLUS BUN&CR 01/12 0600 Active TRC EVALUATION (GEN) 01/11 2151 Active OXYGEN SETUP (GEN) 01/11 2151 Active PT Evaluate & Treat 01/11 2151 Active Pathway - chart 01/11 2151 Active House Staff 01/11 2151 Active Barboza, Insertion/Removal/Asses 01/11 2111 Active CULTURE,URINE 01/11 2111 Active OXYGEN SETUP (GEN) 01/11 2058 Active Saline Lock 01/11 2058 Active Admit to inpatient 01/11 2058 Active Vital Signs 01/11 2058 Active Activity/Ambulation 01/11 2058 Active Code Status 01/11 2058 Active Intake & Output 01/11 1911 Complete Add-on Test (ER Only) 01/11 1805 Active D-DIMER 01/11 1802 Complete URINALYSIS 01/11 1742 Complete TROPONIN LEVEL 01/11 1742 Complete COMPREHENSIVE METABOLIC PANEL 01/11 1742 Complete CBC WITHOUT DIFFERENTIAL 01/11 1742 Complete B-TYPE NATRIURETIC PEP (BNP) 01/11 1742 Complete EKG 01/11 1724 Active Patient Data 01/11 1644 Active VTE Mechanical Prophylaxis 01/11 UNK Active Intake & Output 01/11 UNK Active Current Medications Sig/Bao Start time Last Medication Dose Stop Time Status Admin Enoxaparin Sodium 40 MG DAILY 01/12 0900 UNVr (Lovenox) Laboratory Tests 01/11/18 1835: Urine Color YEL, Urine Clarity CLDY H, Urine pH 6.0, Ur Specific [place] 1.020, Urine Protein TRACE H, Urine Ketones NEG, Urine Nitrite NEG, Urine Bilirubin NEG, Urine Urobilinogen 0.2, Ur Leukocyte Esterase LARGE H, Ur Microscopic SEDIMENT EXAMINED, Urine RBC RARE, Urine WBC 10-15 H, Ur Epithelial Cells PACKD H, Urine Bacteria PACKD H, Urine Hemoglobin TRACE-INTACT, Urine Glucose NEG 01/11/18 1802: Anion Gap 9, Estimated GFR > 60, BUN/Creatinine Ratio 56.7 H, Glucose 227 H, Calcium 8.5, Total Bilirubin 0.3, AST 20, ALT 56 H, Alkaline Phosphatase 170 H , Troponin I < 0.01, Ibb-F-Tkmosyeayyv Pept 4880 H, Total Protein 6.1 L, Albumin 3.2 L, Globulin 2.9, Albumin/Globulin Ratio 1.1, D-Dimer High Sensitivty 915 H, CBC w Diff NO MAN DIFF REQ, RBC 3.74 L, MCV 80.3 L, MCH 25.5 L, MCHC 31.7 L, RDW 19.9 H, MPV 7.4, Gran % 80.7 H, Lymphocytes % 10.2 L, Monocytes % 6.4, Eosinophils % 2.5, Basophils % 0.2, Absolute Granulocytes 9.7 H, Absolute Lymphocytes 1.2, Absolute Monocytes 0.8 H, Absolute Eosinophils 0.3, Absolute Basophils 0 Microbiology 01/11 2143 URINE ROUT: Urine Culture - RECD Patient seen and evaluated. She is here with worsening lower extremity edema. She also has wheezing and crackles diminished breath sounds. While transferring from the EMS stretcher to the hospital stretcher she desaturated to 88% on room air. She is visibly dyspneic with any movement in the stretcher. DuoNeb and Solu-Medrol ordered. We'll check basic labs. Blood work shows an elevated d-dimer CTA ordered. She is a white count of 12, 000 and elevated BNP of 4800. 40 mg IV Lasix ordered. Patient again desaturated while getting on the bedpan to 89%. She'll likely require admission. EKG also shows some nonspecific ST-T wave changes in the chest leads. There is a new flipped T-wave in V2 and V3. CTA is negative for pneumonia pulmonary edema or PE. Patient will be admitted to telemetry for further evaluation and treatment of COPD versus CHF exacerbation and EKG changes. She'll require IV steroids, DuoNeb's, pulmonology, cardiology, telemetry, echocardiogram, serial labs, serial EKGs. Case has with Dr. wall he agrees. Diagnostic Imaging: Viewed by Me: CT Scan. Discussed w/RAD: CT Scan. Radiology Impression: PATIENT: CHLOE DYKES PRESENT AGE: 72 PATIENT ACCOUNT NO: [id number] : 44 LOCATION: [facility] ORDERING PHYSICIAN: Tre DICKENS SERVICE DATE: 01/11/18 EXAM TYPE: CAT - CTA CHEST-PULMONARY EMBOLISM EXAMINATION: CT ANGIOGRAM OF THE CHEST WITH AND WITHOUT CONTRAST (CT PULMONARY ANGIOGRAM FOR PE) CLINICAL INFORMATION: 72-year-old woman with shortness of breath and hypoxia. COMPARISON: 10/31/2017 chest radiograph, 11/08/[address] TECHNIQUE: Prior to contrast administration, noncontrast localization images were obtained. Subsequently, multidetector volumetric imaging was performed from the thoracic inlet to below the diaphragms following the administration of 95 mL Optiray 320 intravenous contrast. No contrast reaction reported. Sagittal, coronal, and MIP oblique sagittal reformatted images were obtained on the CT workstation, uploaded to PACS, and reviewed. Total exam dose-length product 553 mGy-cm. FINDINGS: QUALITY OF STUDY/CONTRAST BOLUS: Satisfactory PULMONARY ARTERIES: No central or segmental pulmonary emboli. LUNG: No focal consolidation, nodules or masses. PLEURA: No pleural effusion or pneumothorax. MEDIASTINUM: Normal heart size. No pericardial effusion. No hilar or mediastinal lymphadenopathy. CHEST WALL/AXILLA: No axillary or internal mammary lymphadenopathy. OSSEOUS STRUCTURES: There is a partially healed fracture of the right posterior eleventh rib. UPPER ABDOMEN: There is diffuse fatty infiltration of the liver. IMPRESSION: No evidence of acute or chronic pulmonary emboli. Partially healed fracture of the right posterior eleventh rib. DICTATED BY: Rhonda Aragon MD DATE/TIME DICTATED:01/11/182018 BALANCE TRUER:MAHSA DATE/TIME TRANSCRIBED:01/11/182018 CONFIDENTIAL, DO NOT COPY WITHOUT APPROPRIATE AUTHORIZATION. <Electronically signed in Other Vendor System> SIGNED BY: Rhonda Aragon MD 01/11/182027 Initial ED EKG: normal sinus rhythm (RATE 75), nonspecific ST T wave chg Prior EKG: changed (NON-SPECIFIC ST-T CHANGES ) (Tre Joshi) Departure Departure Disposition: STILL A PATIENT Condition: Stable Clinical Impression Primary Impression: COPD exacerbation Secondary Impressions: Acute electrocardiogram changes Referrals: Drea GARCIA,Felicia Ferreira (PCP/Family) Departure Forms: Customer Survey General Discharge Information Admission Note Sp[facility] With: [facility]ana [facility] Documentation of Exam: Documentation of any treatments & extenuating circumstances including Concerns Regarding Discharge (functional status, medication knowledge or non-compliance, living conditions, etc.) that warrant an admission rather than observation: Patient desaturated to 89% on room air getting onto the bed bragg. [IV steroids, DuoNeb's, pulmonology consult, cardiology consult, echocardiogram, serial labs, serial EKGs, IV diuresis] (Tre Joshi) PA/IT SYSTEMS ANALYST Co-Sign Statement Statement: ED Attending supervision documentation- I saw and evaluated the patient. I have also reviewed all the pertinent lab results and diagnostic results. I agree with the findings and the plan of care as documented in the PA's/IT SYSTEMS ANALYST's documentation. SCHULZ, peripheral edema: CHF needing IV diuresis supplemental oxygen. [] I have reviewed the ED Record and agree with the PA's/IT SYSTEMS ANALYST's documentation. [] Additions or exceptions (if any) to the PAs/IT SYSTEMS ANALYST's note and plan are summarized below: [] (Riya GARCIA,Geo) Critical Care Note Critical Care Note Critical Care Time: 30-74 min (Tre Joshi)
[2018-01-11 18:07] LABS: ABSOLUTE BASOPHIL COUNT 0 /CUMM (0.0-0.2); ABSOLUTE EOSINOPHIL COUNT 0.3 /CUMM (0.0-0.7); ABSOLUTE GRANULOCYTE CT 9.7 /CUMM (1.4-6.5); ABSOLUTE LYMPH COUNT 1.2 /CUMM (1.2-3.4); ABSOLUTE MONOCYTE COUNT 0.8 /CUMM (0.10-0.60); BASOPHIL % 0.2 % (0.0-2.0); EOSINOPHIL % 2.5 % (0-5); GRANULOCYTE % 80.7 % (42.2-75.2); MEAN CORPUSCULAR HGB 25.5 PG (27.0-31.0); MEAN CORPUSCULAR HGB CONC 31.7 G/DL (33.0-37.0); MEAN CORPUSCULAR VOLUME 80.3 FL (81.0-99.0); MEAN PLATELET VOLUME 7.4 FL (7.4-10.4); PLATELET COUNT 361 /CUMM (130-400); RBC DISTRIBUTION WIDTH 19.9 % (11.5-14.5); RED BLOOD CELL CT 3.74 /CUMM (4.20-5.40); WHITE BLOOD CELL COUNT 12.1 /CUMM (4.8-10.8)
--- NOTE | 2018-01-11 20:28 | CT SCAN REPORT ---
EXAMINATION: CT ANGIOGRAM OF THE CHEST WITH AND WITHOUT CONTRAST (CT PULMONARY ANGIOGRAM FOR PE) CLINICAL INFORMATION: 72-year-old woman with shortness of breath and hypoxia. COMPARISON: 10/31/2017 chest radiograph, 11/08/[address] TECHNIQUE: Prior to contrast administration, noncontrast localization images were obtained. Subsequently, multidetector volumetric imaging was performed from the thoracic inlet to below the diaphragms following the administration of 95 mL Optiray 320 intravenous contrast. No contrast reaction reported. Sagittal, coronal, and MIP oblique sagittal reformatted images were obtained on the CT workstation, uploaded to PACS, and reviewed. Total exam dose-length product 553 mGy-cm. FINDINGS: QUALITY OF STUDY/CONTRAST BOLUS: Satisfactory PULMONARY ARTERIES: No central or segmental pulmonary emboli. LUNG: No focal consolidation, nodules or masses. PLEURA: No pleural effusion or pneumothorax. MEDIASTINUM: Normal heart size. No pericardial effusion. No hilar or mediastinal lymphadenopathy. CHEST WALL/AXILLA: No axillary or internal mammary lymphadenopathy. OSSEOUS STRUCTURES: There is a partially healed fracture of the right posterior eleventh rib. UPPER ABDOMEN: There is diffuse fatty infiltration of the liver. IMPRESSION: No evidence of acute or chronic pulmonary emboli. Partially healed fracture of the right posterior eleventh rib.
--- NOTE | 2018-01-11 21:15 | History & Physical ---
Tabitha GARCIA,Dionne 01/11/182113: General Information and HPI MD Statement: I have seen and personally examined CHLOE DYKES and documented this H&P. The patient is a 72 year old F who presented with a patient stated chief complaint of [ BILATERAL LE SWELLING AND OOZING]. Source of Information: patient Exam Limitations: no limitations History of Present Illness: 72-year-old female with past medical history of hypertension, COPD not on home oxygen, insulin-dependent diabetes mellitus who presented with chief complaint of bilateral lower extremity swelling. Patient has a visiting nurse aide who noticed that the patient lower extremity are weeping fluid and she advised the patient to come to the hospital to get evaluated. Called for ambulance. Of note Endo to the hospital the patient oxygen saturation dropped from 90s to mid 80s with a change of position. Patient reports that her lower extremity has been almost swollen, cannot remember exactly when it started. She also reports that her legs has been weeping clear fluid. She also endorses numbness and tingling of both feet. Patient reports mild shortness of breath at rest which she think it did not change from her baseline. She thinks it is due to COPD. It is associated with mild cough for which she takes Robitussin and expectoration of clear sputum of small amount. She does not use oxygen at home. She denies orthopnea, paroxysmal nocturnal dyspnea. Patient reports being compliant with her home meds including Lasix however she cannot recall the dose. Patient also complains of widespread joint pain for which she has been using Aleve. Lasix was prescribed by her PCP and she does not see grand scribe. Patient reports being compliant with her home meds including insulin. She measures her blood sugar at home and it has been ranging from [id number]. She does not see an diamond die maker. She see molded grid and parts inspector in [place] Patient is an ex-smoker, she has 150 PPY, she quit on 2005. She also reports occasional alcohol use Allergies/Medications Allergies: Coded Allergies: ketorolac (From TORADOL) (Mild, "FEVER AND CHILLS" 10/28/16) raspberry (UNKNOWN 10/28/16) Uncoded Allergies: TIDE DETERGENT (03/21/11) Home Med list Albuterol Sulfate (Ventolin Hfa) 90 MCG HFA.AER.AD 2 PUF INH Q4-6 PRN PRN SHORTNESS OF BREATH Azithromycin (Zithromax) 500 MG TABLET 1 TAB PO DAILY COPD Fluticasone/Salmeterol (Advair 250-50 Diskus) 250 MCG-50 MCG/DOSE BLST.W.DEV ASTHMA (Reported) Furosemide 20 MG TABLET HIGH BLOOD PRESSURE (Reported) Furosemide 40 MG TABLET HIGH BLOOD PRESSURE (Reported) Insulin Glargine,Hum.rec.anlog (Lantus Solostar) 100 UNIT/ML (3 ML) INSULN.PEN DIABETES (Reported) Montelukast Sodium 10 MG TABLET ASTHMA (Reported) Prednisone 10 MG TABLET 1 TAB PO BID INFLAMMATION DAY1/DAY2 FOUR TABS DAY3/DAY4 THREE TABS DAY5/DAY6 TWO TABS DAY7 ONE TAB Simvastatin (Simvastatin*) 20 MG TABLET HIGH CHOLESTROL (Reported) Sitagliptin Phosphate (Januvia) 100 MG TABLET DIABETES (Reported) Sulfamethoxazole/Trimethoprim (Bactrim Ds Tablet) 800 MG-160 MG TABLET 1 TAB PO BID CELLULITIS Tiotropium [place] (Spiriva) 18 MCG CAP.W.DEV ASTHMA (Reported) Past History Travel History Traveled to [place] past 21 day No Medical History Neurological: NONE EENT: NONE Cardiovascular: hypertension Respiratory: NONE, asthma Gastrointestinal: NONE Hepatic: NONE Renal: NONE Musculoskeletal: NONE Psychiatric: NONE Endocrine: diabetes Blood Disorders: NONE Cancer(s): NONE 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 Cardiovascular: Reports: edema, peripheral edema. Denies: chest pain, orthopena, palpitations, syncope. Respiratory: Reports: cough, short of breath, sputum production, wheezing. Denies: hemoptysis, orthopnea, stridor. GI: Denies: abdominal pain, bloating, constipation, diarrhea, distention, nausea, bloody stool, vomiting. Genitourinary: Denies: dysuria, frequency, hematuria, hesitation, nocturia. Musculoskeletal: Reports: joint pain. Skin: Denies: no symptoms. Neurological/Psychological: Reports: numbness, tingling. Hematologic/Endocrine: Denies: no symptoms. Immunologic/Allergic: Denies: no symptoms. Exam & Diagnostic Data Last 24 Hrs of Vital Signs/I&O Vital Signs Date Time Temp Pulse Resp B/P B/P Pulse O2 O2 Flow FiO2 Mean Ox Delivery Rate 01/11 2258 98.4 75 28 156/78 93 01/11 2235 Nasal 2.0L Cannula 01/11 2146 97.8 75 20 148/76 98 Nasal 2.0L Cannula 01/11 1944 100 22 138/78 96 Room Air 01/11 1750 86 Room Air 01/11 1740 97.9 99 24 156/89 86 Room Air Intake & Output 01/12 0800 01/12 0000 01/11 1600 Intake Total Output Total 605 Balance -605 Output, Urine 605 Patient 238 lb Weight Weight Bed scale Measurement Method Physical Exam General Appearance Alert, Oriented X3, Cooperative, No Acute Distress HEENT Atraumatic, PERRLA, EOMI, Mucous Membr. moist/pink Neck Supple, No JVD Cardiovascular Normal S1, Normal S2, No Murmurs Lungs bilateral rales and wheezes Abdomen Normal Bowel Sounds, Soft, No Tenderness, distended, obese Neurological Normal Speech, Strength at 5/5 X4 Ext, Normal Tone, Sensation Intact, Cranial Nerves 3-12 NL Extremities No Clubbing, No Cyanosis, 2 + pitting edema in both LE, weeping, erythema, chronic venous stasis with skin discolouration to the level of the knee Vascular Normal Pulses Last 24 Hrs of Labs/Eric: Laboratory Tests 01/11/18 1835: Urine Color YEL, Urine Clarity CLDY H, Urine pH 6.0, Ur Specific [place] 1.020, Urine Protein TRACE H, Urine Ketones NEG, Urine Nitrite NEG, Urine Bilirubin NEG, Urine Urobilinogen 0.2, Ur Leukocyte Esterase LARGE H, Ur Microscopic SEDIMENT EXAMINED, Urine RBC RARE, Urine WBC 10-15 H, Ur Epithelial Cells PACKD H, Urine Bacteria PACKD H, Urine Hemoglobin TRACE-INTACT, Urine Glucose NEG 01/11/18 1802: Anion Gap 9, Estimated GFR > 60, BUN/Creatinine Ratio 56.7 H, Glucose 227 H, Calcium 8.5, Iron Pending, TIBC Pending, Ferritin Pending, Total Bilirubin 0.3, AST 20, ALT 56 H, Alkaline Phosphatase 170 H, Troponin I < 0.01, Pro-B- Natriuretic Pept 4880 H, Total Protein 6.1 L, Albumin 3.2 L, Globulin 2.9, Albumin/Globulin Ratio 1.1, D-Dimer High Sensitivty 915 H, CBC w Diff NO MAN DIFF REQ, RBC 3.74 L, MCV 80.3 L, MCH 25.5 L, MCHC 31.7 L, RDW 19.9 H, MPV 7.4, Gran % 80.7 H, Lymphocytes % 10.2 L, Monocytes % 6.4, Eosinophils % 2.5, Basophils % 0.2, Absolute Granulocytes 9.7 H, Absolute Lymphocytes 1.2, Absolute Monocytes 0.8 H, Absolute Eosinophils 0.3, Absolute Basophils 0 Microbiology 01/11 2143 URINE ROUT: Urine Culture - RECD Diagnostic Data EKG Results NSR, HR 75, QTC 443, no ST-T wave changes Other Results CTA: No evidence of acute or chronic pulmonary emboli. Partially healed fracture of the right posterior eleventh rib. Assessment/Plan Assessment: 72-year-old female with past medical history of hypertension, COPD not on home oxygen, insulin-dependent diabetes mellitus who presented with chief complaint of bilateral lower extremity swelling. Patient has a visiting nurse aide who noticed that the patient lower extremity are weeping fluid and she advised the patient to come to the hospital to get evaluated. Patient had desaturation and brought to the hospital where her pulse ox dropped to mid 80s. During that encounter the patient denies any shortness of breath however she looked dyspneic. She does not see a grand scribe and her ejection fraction is not known however in the ED her proBNP was elevated. Physical exam was positive only for lower extremity edema but no congested neck veins or crackles. Extensive wheezing and rales were heard on both lungs. Differential diagnosis includes COPD exacerbation versus CHF exacerbation. Patient received 1 dose of Lasix 40 mg in the ED Vital signs on admission: Blood pressure 156/89, pulse 99, temperature 97.9, RR 24, 86 on room air Labs on admission: Pertinent for mild leukocytosis with WBC 12.1, anemia with hemoglobin 9.5, MCV 80.3, hyperkalemia with potassium of 5.2, sodium 141, d- dimer 915, AST 20, ALT 56, alkaline phosphatase 170, glucose 227, proBNP 4880 Problem list: COPD exacerbation ? CHF exacerbation IDDM Hyperkalemia Leukocytosis Anemia Asymptomatic bacteriuria Plan: Admit to telemetry Continuous telemetry monitoring Vitals every shift Strict I's and O's Continue Lasix 40 mg IV daily TRC and nebs Oxygen to keep pulse ox above 92 Continue Solu-Medrol q. 8 Continue IV azithromycin Echocardiogram Serial troponin EKG Follow-up on iron studies Cardiology consult appreciated Continue Levemir 15 units daily Insulin sliding scale Fingerstick glucose Follow-up on urine culture Please confirm home meds in the morning Full code DVT prophylaxis with subcutaneous Lovenox Consistent carbohydrate diet As Ranked By This Provider Problem List: 1. COPD exacerbation 2. Anemia 3. Leukocytosis Core Measures/Misc (05/19) Acute Coronary Syndrome ACS Diagnosis: No Congestive Heart Failure Congestive Heart Failure Diagnosis No Cerebrovascular Accident CVA/TIA Diagnosis: No VTE (View Protocol) VTE Risk Factors Age>40 No Mechanical VTE Prophylaxis d/t N/A MechProphylax Ordered No VTE Pharm Prophylaxis d/t NA PharmProphylax ordered Sepsis (View protocol) Sepsis Present: No Stevo Pablo MD 01/11/18 2135: Resident Review Statement Resident Statement: examined this patient, discussed with international sourcing manager, agreed with international sourcing manager, discussed with family, reviewed EMR data (avail), discussed with nursing , reviewed images, amended to note Other Findings: PATIENT IS A POOR HISTORIAN. 72-year-old female with past medical history of COPD not on home oxygen, hypertension, diabetes mellitus, who was sent into the ED by her visiting nurse aide for worsening and weeping b/l leg swelling. Patient mentions that she is compliant with medications, and "swelling of both legs" although her nursing home social worker noticed weeping wounds earlier today. Patient mentions that she used to smoke max 3 packs of cigarette per day (for 51 yrs, quit in 2005), does not use O2/steroids, but has a cough with whitish sputum that is unchanged in color or amount from her baseline. She was found to be hypoxic to 85% on RA in the ED. Patient denies any chest pain, chest pressure/heaviness, shortness of breath more than usual, orthopnea although she uses two pillows to sleep, PND, palpitations, recent travel, sick contacts, fever/chills. Vitals, labs, images as mentioned above. EKG- NSR at 70s, no ischemic changes. PE impression- morbidly obese, slightly confused lady with b/l chronic leg edema with skin changes including new weeping lesions (serous), with poor air entry to b/l lungs. She got wheezy immediately on moving her during examination. She is currently admitted in the telemetry floor for the management of following issues: # Acute on chronic hypoxic respiratory failure, -likely due to COPD exacerbation/bronchitis, to rule out Acute CHF Patient's clinical picture is consistent with COPD exacerbation, although the patient being poor historian, we are unable to find out whether she is marledly below her baseline at this point are not. She has wheezes, is hypoxic, has been coughing up phlegm, with a baseline history of COPD and seems lethargic, and has to use additional oxygen to maintain her SPO2. * Admit her to telemetry floor * Regular vitals, pulse oximetry * Oxygen to maintain saturation above 90% * TRC/nebs PRN * Azithromycin for bronchitis * IV methylprednisolone 40 mg every 8 hours * Trop/EKG trend to rule out ACS #Diabetes mellitus Patient uses insulin at home, but mentioned that she uses Lantus once in the morning, and once at 1:30 PM which does not seem to be the standard interval/ frequency. We will start her on Levemir 15 units in the morning, and will reassess if she requires Levemir twice a day. Diet has been changed to consistent carbohydrate, insulin sliding scale initiated. #I called patient's son to update about patient's condition, as well as to verify history/medications. I was however unable to get full medical relevant/ information, thus pharmacy needs to be called in the morning to reconfirm her medications. #Housekeeping: Diet: Diabetic DVT ppx: SQ Lovenox Code stauts: Full code Family member to be notified, ICE: Josué (Son): [phone]. Bernardo GARCIA, [facility] 01/11/18 2412: Attending MD Review Statement Attending Statement Attending MD Statement: examined this patient, discuss w/resident/PA/SOLUTIONS MANAGER, agreed w/resident/PA/SOLUTIONS MANAGER, reviewed images, amended to note Attending Assessment/Plan: 72 yo F with h/o HTN, COPD, DM, arthritis, was sent in by visiting nurse for evaluation of worsening bilateral lower extremity edema and weeping wounds. She has been using lasix without much effect. She has chronic baseline cough productive of whitish phlegm. She denies dyspnea but on examination she is evidently dyspneic. She has no underlying cardiac problems and has never seen a grand scribe. She was seen in the ER in October 2017 for similar s/s, but left against medical advice. While in the ER today, her sats dropped to 80's with change in position, but patient offered no complaints. Vitals stable except for sats 86% RA --> 93% on 2L. Morbidly obese lady, dyspneic at rest, able to speak in short sentences, Chest b/l reduced air entry and expiratory wheezes+, B/l LE edema++ with denuded blisters, chronic venous stasis. Labs: WBC 12.1, H/H 9.5/30, microcytic anemia, K 5.2, BUN 51, glucose 227, trop neg, proBNP 4880. UA cloudy, large LE, WBC 10-15, packed bacteria. Chest CTA: no pulmonary emboli, no effusions, pulmonary edema or consolidation. EKG: sinus rhythm, T-wave flattening/ inversion in III, aVF and V3. Assessment and plan: 1. Acute hypoxic respiratory failure 2. COPD exacerbation with acute bronchitis 3. Constellation of symptoms with elevated proBNP may suggest congestive heart failure 4. Nonspecific EKG changes 5. Asymptomatic bacteriuria 6. Chronic microcytic anemia 7. Leukocytosis likely reactive - Admit to Telemetry - Elevate LE - O2 supplementation - TRC nebs - Serial EKG and troponin - Obtain echo - IV lasix 40 mg daily - Cardio consult - IV steroids and IV azithro - Diabetes management, check HbA1c - Work up anemia guaiac all stools, check iron studies, B12, folic acid, TSH, free T4. DVT ppx Lovenox. Full code.
[2018-01-11 22:58] VITALS: BP 156/78
--- NOTE | 2018-01-11 23:43 | Admission Certification ---
Admission Certification Certification Statement - As attending physician, I certify that at the time of - admission, based on clinical presentation, severity of - symptoms, need for further diagnostic testing and - therapeutic interventions, and risk of adverse outcomes - without in-hospital treatment, in my clinical assessment, - this patient requires an acute hospital stay for a minimum - of two nights or longer. I have also considered psychsocial - factors such as support system, advanced age, financial - issues, cognitive issues, and failed out-patient treatments, - past re-admission history, safety of patient, and lack of - compliance as applicable. Specific rationale supporting this admission is: Acute hypoxic respiratory failure, COPD exacerbation, possible congestive heart failure.
[2018-01-12 07:38] VITALS: BP 158/82
--- NOTE | 2018-01-12 08:21 | PN- Housestaff ---
Toby GARCIA,[facility] 01/12/18 0821: Subjective Follow-up For: Hyperkalemia Lower extremity edema Tele-Events Since Last Visit: NSR/SB with HR 57-82. No overnight events. Subjective: patient was seen and examined at bedside. States feeling okay. Offers no complaints Review of Systems Constitutional: Reports: no symptoms. Objective Last 24 Hrs of Vital Signs/I&O Vital Signs Date Time Temp Pulse Resp B/P B/P Pulse O2 O2 Flow FiO2 Mean Ox Delivery Rate 01/12 1400 98.3 78 20 150/70 94 01/12 1034 Nasal 2.0L Cannula 01/12 0738 97.8 73 28 158/82 93 Nasal 2.0L Cannula 01/11 2258 98.4 75 28 156/78 93 01/11 2235 Nasal 2.0L Cannula 01/11 2146 97.8 75 20 148/76 98 Nasal 2.0L Cannula 01/11 1944 100 22 138/78 96 Room Air 01/11 1750 86 Room Air 01/11 1740 97.9 99 24 156/89 86 Room Air Intake & Output 01/12 1600 01/12 0800 01/12 0000 Intake Total 211 Output Total 1575 605 Balance -1364 -605 Intake, IV 11 Intake, Oral 200 Output, Urine 1575 605 Patient 238 lb Weight Weight Bed scale Measurement Method Physical Exam General Appearance: Alert, Oriented X3, Cooperative, No Acute Distress Skin: No Rashes, No Breakdown Skin Temp/Moisture Exam: Warm/Dry Sepsis Skin Exam (color): Normal for Ethnicity HEENT: Atraumatic Cardiovascular: Normal S1, Normal S2, No Murmurs Lungs: Normal Air Movement Abdomen: Soft, No Tenderness Neurological: Normal Speech Extremities: 2+ b/l lower extremity edema Last 24 Hrs of Lab/Eric Results Last 24 Hrs of Labs/Mics: Laboratory Tests 01/12/18 1512: Potassium Pending 01/12/18 1309: Troponin I < 0.01 01/12/18 1037: Sodium Cancelled, Potassium Cancelled, Chloride Cancelled, Carbon Dioxide Cancelled, Anion Gap Cancelled, BUN Cancelled, Creatinine Cancelled, BUN/ Creatinine Ratio Cancelled 01/12/18 0627: Anion Gap 10, Estimated GFR > 60, BUN/Creatinine Ratio 63.8 H, Troponin I < 0.01, CBC w Diff MAN DIFF ORDERED, RBC 4.17 L, MCV 80.4 L, MCH 25.2 L, MCHC 31.3 L, RDW 19.7 H, MPV 8.4, Gran % 95.1 H, Lymphocytes % 4.6 L, Monocytes % 0.2 L, Eosinophils % 0, Basophils % 0.1, Absolute Granulocytes 13.8 H, Absolute Lymphocytes 0.7 L, Absolute Monocytes 0 L, Absolute Eosinophils 0, Absolute Basophils 0, Platelet Estimate VERIFIED BY SMEAR, Polychromasia 1+, Poikilocytosis 1+, Basophilic Stippling SLIGHT, Anisocytosis 1+, Ovalocytes 1+ 01/11/18 1835: Urine Color YEL, Urine Clarity CLDY H, Urine pH 6.0, Ur Specific [place] 1.020, Urine Protein TRACE H, Urine Ketones NEG, Urine Nitrite NEG, Urine Bilirubin NEG, Urine Urobilinogen 0.2, Ur Leukocyte Esterase LARGE H, Ur Microscopic SEDIMENT EXAMINED, Urine RBC RARE, Urine WBC 10-15 H, Ur Epithelial Cells PACKD H, Urine Bacteria PACKD H, Urine Hemoglobin TRACE-INTACT, Urine Glucose NEG 01/11/18 1802: Anion Gap 9, Estimated GFR > 60, BUN/Creatinine Ratio 56.7 H, Glucose 227 H, Calcium 8.5, Iron 34 L, TIBC 350, Ferritin 36.6, Total Bilirubin 0.3, AST 20, ALT 56 H, Alkaline Phosphatase 170 H, Troponin I < 0.01, [id number] Pept 4880 H, Total Protein 6.1 L, Albumin 3.2 L, Globulin 2.9, Albumin/ Globulin Ratio 1.1, D-Dimer High Sensitivty 915 H, CBC w Diff NO MAN DIFF REQ, RBC 3.74 L, MCV 80.3 L, MCH 25.5 L, MCHC 31.7 L, RDW 19.9 H, MPV 7.4, Gran % 80.7 H, Lymphocytes % 10.2 L, Monocytes % 6.4, Eosinophils % 2.5, Basophils % 0.2, Absolute Granulocytes 9.7 H, Absolute Lymphocytes 1.2, Absolute Monocytes 0.8 H, Absolute Eosinophils 0.3, Absolute Basophils 0 Microbiology 01/11 2143 URINE ROUT: Urine Culture - RES Assessment/Plan Assessment: 72-year-old female with past medical history of hypertension, COPD not on home oxygen, insulin-dependent diabetes mellitus presented to the ED with chief complaint of bilateral lower extremity swelling. Assessment: 1. Acute Hypoxic Respiratory Failure 2. COPD Exacerbation 3. Hyperkalemia 4. Microcytosis 5. History of Hypertension 6. History of Diabetes Plan: * Continue monitoring on telemetry for now. * Continue IV Lasix 40mg daily * IV SoluMedrol 40mg q12. Will likely switch her to PO Prednisone from tomorrow * TRC/nebs as needed * Continue IV Azithromycin for 2 more days. * She was hyperkalemic to 6.3 this morning. Received one dose of kayexalate, 1g Calcium gluconate and 10 units IV insulin * An EKG repeated at the time did not reveal any acute changes. * Repeat K pending * Iron studies show low Fe with normal ferritin and TIBC. With a borderline microcytosis would supplement with Fe. * Echocardiogram to assess for LVEF and CHF - pending * Continue leg elevation * Appreciate cardio recs * Diet: CC1 * DVT Prophylaxis: SC Lovenox * Code: Full Code Problem List: 1. COPD (chronic obstructive pulmonary disease) Pain Ratin Pain Location: none Pain Goal: Remain pain free Pain Plan: none Tomorrow's Labs & Rationales: CBC, BEP, Marga GARCIA,Tino 01/12/18 1515: Attending MD Review Statement Attending Statement Attending MD Statement: examined this patient, discuss w/resident/PA/SEDIMENTATIONIST, agreed w/resident/PA/SEDIMENTATIONIST, discussed with nursing Attending Assessment/Plan: 72 yo F with h/o HTN, COPD, DM, arthritis, was sent in by visiting nurse for evaluation of worsening bilateral lower extremity edema and weeping wounds. She has been using lasix without much effect. She has chronic baseline cough productive of whitish phlegm. She denies dyspnea but on examination she is evidently dyspneic. She has no underlying cardiac problems and has never seen a poultry raiser. She was seen in the ER in October 2017 for similar s/s, but left against medical advice. Feeling better overall since admission in terms of breathing. Denies specific complaints of chest pain lightheadedness dizziness or palpitations On examination vital signs blood pressure 158/82, heart rate of 73, respiratory 28, afebrile saturating 93% on room air Assessment and plan: 1. Acute hypoxic respiratory failure 2. COPD exacerbation with acute bronchitis/CHF - Echocardiogram pending. Will continue with diuresis - consider switching to Lasix twice daily if there is no adequate output. 3. Hyperkalemia - patient received Kayexalte and Calcium - follow up on EKG and repeat labs 4. Diabetes mellitus - target blood sugar of 140 - 190.
[2018-01-12 08:46] LABS: ABSOLUTE BASOPHIL COUNT 0 /CUMM (0.0-0.2); ABSOLUTE EOSINOPHIL COUNT 0 /CUMM (0.0-0.7); ABSOLUTE GRANULOCYTE CT 13.8 /CUMM (1.4-6.5); ABSOLUTE LYMPH COUNT 0.7 /CUMM (1.2-3.4); ABSOLUTE MONOCYTE COUNT 0 /CUMM (0.10-0.60); BASOPHIL % 0.1 % (0.0-2.0); EOSINOPHIL % 0 % (0-5); GRANULOCYTE % 95.1 % (42.2-75.2); HEMATOCRIT 33.5 % (37-47); MEAN CORPUSCULAR HGB 25.2 PG (27.0-31.0); MEAN CORPUSCULAR HGB CONC 31.3 G/DL (33.0-37.0); MEAN CORPUSCULAR VOLUME 80.4 FL (81.0-99.0); MEAN PLATELET VOLUME 8.4 FL (7.4-10.4); PLATELET COUNT 361 /CUMM (130-400); RBC DISTRIBUTION WIDTH 19.7 % (11.5-14.5); RED BLOOD CELL CT 4.17 /CUMM (4.20-5.40); WHITE BLOOD CELL COUNT 14.5 /CUMM (4.8-10.8)
--- NOTE | 2018-01-12 13:12 | Cons- Cardiology ---
General Information and HPI Consulting Request Date of Consult: 01/12/18 Requested By: Bernardo GARCIA,Vane Reason for Consult: Dyspnea, lower extremity edema Source of Information: patient, old records Exam Limitations: poor historian History of Present Illness: The patient is a 72-year-old woman with a past medical history of hypertension, diabetes mellitus and COPD. She presents to our hospital with symptoms of increasing dyspnea over period of several days as well as noted lower extremity edema which has been progressive and weeping. Of note, while in route to the hospital, she became hypoxic during position changes, with saturation levels of 80s on room air. The patient states noting increasing leg edema as well as weeping of both legs for many weeks. There has been mild paresthesias of both feet. From a respiratory standpoint, the patient describes significant dyspnea; however, states having dyspnea at baseline which she ascribes to her underlying COPD. There is a nonproductive cough associated with it. The patient otherwise denies symptoms of palpitations nor chest pain while at rest or with physical activity. On arrival, she was noted to have a room air saturation of 86%. There was severe bilateral lower extremity edema. An initial EKG demonstrated no acute ischemic EKG changes. Her presenting BNP was 4880, and the first troponin isoenzyme was negative she was diuresed with IV Lasix and administered IV steroids and azithromycin. Currently, she states she is improved; however, continues to notice significant lower extremity edema. Allergies/Medications Allergies: Coded Allergies: ketorolac (From TORADOL) (Mild, "FEVER AND CHILLS" 10/28/16) raspberry (UNKNOWN 10/28/16) Uncoded Allergies: TIDE DETERGENT (03/21/11) Home Med List: Albuterol Sulfate (Ventolin Hfa) 90 MCG HFA.AER.AD 2 PUF INH Q4-6 PRN PRN SHORTNESS OF BREATH Azithromycin (Zithromax) 500 MG TABLET 1 TAB PO DAILY COPD Fluticasone/Salmeterol (Advair 250-50 Diskus) 250 MCG-50 MCG/DOSE BLST.W.DEV ASTHMA (Reported) Furosemide 20 MG TABLET HIGH BLOOD PRESSURE (Reported) Furosemide 40 MG TABLET HIGH BLOOD PRESSURE (Reported) Insulin Glargine,Hum.rec.anlog (Lantus Solostar) 100 UNIT/ML (3 ML) INSULN.PEN DIABETES (Reported) Montelukast Sodium 10 MG TABLET ASTHMA (Reported) Prednisone 10 MG TABLET 1 TAB PO BID INFLAMMATION DAY1/DAY2 FOUR TABS DAY3/DAY4 THREE TABS DAY5/DAY6 TWO TABS DAY7 ONE TAB Simvastatin (Simvastatin*) 20 MG TABLET HIGH CHOLESTROL (Reported) Sitagliptin Phosphate (Januvia) 100 MG TABLET DIABETES (Reported) Sulfamethoxazole/Trimethoprim (Bactrim Ds Tablet) 800 MG-160 MG TABLET 1 TAB PO BID CELLULITIS Tiotropium Sterling (Spiriva) 18 MCG CAP.W.DEV ASTHMA (Reported) Current Medications: Current Medications Sig/Bao Start time Last Medication Dose Route Stop Time Status Admin Acetaminophen 650 MG Q6P PRN 01/12 0130 AC PO Acetaminophen 1,000 MG Q6P PRN 01/12 0130 AC IV Albuterol Sulfate 2 PUF Q4P PRN 01/12 1045 AC INH Albuterol Sulfate 3 ML ONCE ONE 01/11 1815 DC 01/11 INH 01/11 181 1837 Atorvastatin Calcium 20 MG 1700 01/12 1700 AC PO Azithromycin 500 MG DAILY 01/12 0900 AC 01/12 Sodium Chloride 250 ML IV 01/14 0959 1006 Calcium Gluconate 1 GM ONCE ONE 01/12 1045 DC 01/12 Sodium Chloride 100 ML IV 01/12 1144 1112 Dextrose 12.5 GM ONCE ONE 01/12 1045 DC 01/12 IV 01/12 1046 1054 Enoxaparin Sodium 40 MG DAILY 01/12 0900 AC 01/12 SC 1005 Furosemide 40 MG DAILY 01/12 0900 AC 01/12 IV 1007 Furosemide 0 .STK-MED ONE 01/11 2142 DC IV Furosemide 40 MG ONCE ONE 01/11 2100 DC 01/11 IV 01/11 2101 2146 Insulin Aspart 0 TIDAC 01/12 0800 AC 01/12 SC 1210 Insulin Aspart 2 UNITS ONCE ONE 01/12 0100 DC 01/12 SC 01/12 0101 0111 Insulin Detemir 15 UNITS BID 01/12 2100 AC SC Insulin Detemir 15 UNITS DAILY 01/12 0900 DC 01/12 SC 1006 Insulin Human Regular 5 UNITS ONCE ONE 01/12 1045 DC 01/12 IV 01/12 1046 1107 Ipratropium Sterling 2.5 ML ONCE ONE 01/11 1815 DC 01/11 INH 01/11 1816 1837 Methylprednisolone 40 MG Q12 01/12 2100 AC IV Methylprednisolone 40 MG Q8 01/12 0100 DC 01/12 IV 0558 Methylprednisolone 0 .STK-MED ONE 01/11 2009 DC .ROUTE Methylprednisolone 125 MG ONCE ONE 01/11 1930 DC 01/11 IV 01/11 1932013 Polyethylene Glycol 17 GM AT BEDTIME PRN 01/12 0130 AC PO Sodium Polystyrene 60 ML ONCE ONE 01/12 1045 DC 01/12 Sulfonate PO 01/12 1046 1135 Review of Systems Review of Systems: The review of systems is negative for chest pains, palpitations nor lightheadedness. The remainder of the 14 point review of systems is noncontributory with the exception of above. 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 Home Services at Home: Home Health Aide Smoking Status: Former Smoker Exam & Diagnostic Data Vital Signs and I&O Vital Signs Date Time Temp Pulse Resp B/P B/P Pulse O2 O2 Flow FiO2 Mean Ox Delivery Rate 01/12 1034 Nasal 2.0L Cannula 01/12 0738 97.8 73 28 158/82 93 Nasal 2.0L Cannula 01/11 2258 98.4 75 28 156/78 93 01/11 2235 Nasal 2.0L Cannula 01/11 2146 97.8 75 20 148/76 98 Nasal 2.0L Cannula 01/11 1944 100 22 138/78 96 Room Air 01/11 1750 86 Room Air 01/11 1740 97.9 99 24 156/89 86 Room Air Intake & Output 01/12 1600 01/12 0800 01/12 0000 01/11 1600 01/11 0800 01/11 0000 Intake Total 211 Output Total 1575 605 Balance -1364 -605 Intake, IV 11 Intake, Oral 200 Output, Urine 1575 605 Patient 238 lb Weight Weight Bed scale Measurement Method Physical Exam: General: Nontoxic, no apparent distress. HEENT: Sclera and conjunctiva within normal limits, without xanthelasmas. Neck: Carotids 2+ without bruits. Respiratory: Scattered rhonchi and rales, air movement is good, without accessory respiratory muscle use. Heart: Regular rate and rhythm, without murmurs, without JVD. Abdomen: Soft, nontender, no masses, normoactive bowel sounds. Extremities: Bilateral approximately 2-3 mm of pitting edema in both lower extremities with serous weeping. There is chronic venous stasis changes as well as diffuse erythema Neuro: Nonfocal exam, strength, 5 out of 5 Skin: Within normal limits without lesions. Psych: Mood and affect: Normal Labs/Eric Results: Laboratory Tests 01/12 01/12 1037 0627 Chemistry Sodium (137 - 145 mmol/L) Cancelled 138 Potassium (3.5 - 5.1 mmol/L) Cancelled 6.3 *H Chloride (98 - 107 mmol/L) Cancelled 99 Carbon Dioxide (22 - 30 mmol/L) Cancelled 30 Anion Gap (5 - 16) Cancelled 10 BUN (7 - 17 mg/dL) Cancelled 51 H Creatinine (0.5 - 1.0 mg/dL) Cancelled 0.8 Estimated GFR (>60 ml/min) > 60 BUN/Creatinine Ratio (7 - 25 %) Cancelled 63.8 H Troponin I (< 0.11 ng/ml) < 0.01 Hematology CBC w Diff MAN DIFF ORDERED WBC (4.8 - 10.8 /CUMM) 14.5 H RBC (4.20 - 5.40 /CUMM) 4.17 L Hgb (12.0 - 16.0 G/DL) 10.5 L Hct (37 - 47 %) 33.5 L MCV (81.0 - 99.0 FL) 80.4 L MCH (27.0 - 31.0 PG) 25.2 L MCHC (33.0 - 37.0 G/DL) 31.3 L RDW (11.5 - 14.5 %) 19.7 H Plt Count (130 - 400 /CUMM) 361 MPV (7.4 - 10.4 FL) 8.4 Gran % (42.2 - 75.2 %) 95.1 H Lymphocytes % (20.5 - 51.1 %) 4.6 L Monocytes % (1.7 - 9.3 %) 0.2 L Eosinophils % (0 - 5 %) 0 Basophils % (0.0 - 2.0 %) 0.1 Absolute Granulocytes (1.4 - 6.5 /CUMM) 13.8 H Absolute Lymphocytes (1.2 - 3.4 /CUMM) 0.7 L Absolute Monocytes (0.10 - 0.60 /CUMM) 0 L Absolute Eosinophils (0.0 - 0.7 /CUMM) 0 Absolute Basophils (0.0 - 0.2 /CUMM) 0 Platelet Estimate (ADEQUATE) VERIFIED BY SMEAR Polychromasia 1+ Poikilocytosis 1+ Basophilic Stippling SLIGHT Anisocytosis 1+ Ovalocytes 1+ 01/11 01/11 1835 1802 Chemistry Sodium (137 - 145 mmol/L) 141 Potassium (3.5 - 5.1 mmol/L) 5.2 H Chloride (98 - 107 mmol/L) 102 Carbon Dioxide (22 - 30 mmol/L) 29 Anion Gap (5 - 16) 9 BUN (7 - 17 mg/dL) 51 H Creatinine (0.5 - 1.0 mg/dL) 0.9 Estimated GFR (>60 ml/min) > 60 BUN/Creatinine Ratio (7 - 25 %) 56.7 H Glucose (65 - 99 mg/dL) 227 H Calcium (8.4 - 10.2 mg/dL) 8.5 Iron (37 - 170 ug/dL) 34 L TIBC (265 - 497 ug/dL) 350 Ferritin (11.1 - 264 ng/mL) 36.6 Total Bilirubin (0.2 - 1.3 mg/dL) 0.3 AST (14 - 36 U/L) 20 ALT (9 - 52 U/L) 56 H Alkaline Phosphatase (<127 U/L) 170 H Troponin I (< 0.11 ng/ml) < 0.01 [id number] Pept (<125 pg/mL) 4880 H Total Protein (6.3 - 8.2 g/dL) 6.1 L Albumin (3.5 - 5.0 g/dL) 3.2 L Globulin (1.9 - 4.2 gm/dL) 2.9 Albumin/Globulin Ratio (1.1 - 2.2 %) 1.1 Coagulation D-Dimer High Sensitivty (0 - 243 ng/ml) 915 H Hematology CBC w Diff NO MAN DIFF REQ WBC (4.8 - 10.8 /CUMM) 12.1 H RBC (4.20 - 5.40 /CUMM) 3.74 L Hgb (12.0 - 16.0 G/DL) 9.5 L Hct (37 - 47 %) 30.0 L MCV (81.0 - 99.0 FL) 80.3 L MCH (27.0 - 31.0 PG) 25.5 L MCHC (33.0 - 37.0 G/DL) 31.7 L RDW (11.5 - 14.5 %) 19.9 H Plt Count (130 - 400 /CUMM) 361 MPV (7.4 - 10.4 FL) 7.4 Gran % (42.2 - 75.2 %) 80.7 H Lymphocytes % (20.5 - 51.1 %) 10.2 L Monocytes % (1.7 - 9.3 %) 6.4 Eosinophils % (0 - 5 %) 2.5 Basophils % (0.0 - 2.0 %) 0.2 Absolute Granulocytes (1.4 - 6.5 /CUMM) 9.7 H Absolute Lymphocytes (1.2 - 3.4 /CUMM) 1.2 Absolute Monocytes (0.10 - 0.60 /CUMM) 0.8 H Absolute Eosinophils (0.0 - 0.7 /CUMM) 0.3 Absolute Basophils (0.0 - 0.2 /CUMM) 0 Urines Urine Color (YEL,AMB,STR) YEL Urine Clarity (CLEAR) CLDY H Urine pH (5.0 - 8.0) 6.0 Ur Specific [place] (1.001 - 1.035) 1.020 Urine Protein (NEG,<30 MG/DL) TRACE H Urine Ketones (NEG) NEG Urine Nitrite (NEG) NEG Urine Bilirubin (NEG) NEG Urine Urobilinogen (0.1 - 1.0 EU/dl) 0.2 Ur Leukocyte Esterase (NEG) LARGE H Ur Microscopic SEDIMENT EXAMINED Urine RBC (0 - 5 /HPF) RARE Urine WBC (0 - 2 /HPF) 10-15 H Ur Epithelial Cells (NONE,FEW) PACKD H Urine Bacteria (NEG/NONE) PACKD H Urine Hemoglobin (NEG) TRACE-INTACT Urine Glucose (N MG/DL) NEG Assessment/Plan Assessment/Plan 72-year-old woman with a past medical history of hypertension, diabetes mellitus and COPD. She presents to our hospital with symptoms of increasing dyspnea over period of several days as well as noted lower extremity edema which has been progressive and weeping. Of note, while in route to the hospital, she became hypoxic during position changes, with saturation levels of 80s on room air. She has a significantly elevated BNP and normal troponin isoenzyme. Dyspnea: Likely multifactorial, including underlying COPD as well as likely acute congestive heart failure (unknown systolic versus diastolic). At this time, we will continue diuresis targeting a net output of approximately 1 L per day. An echocardiogram will be obtained to evaluate her cardiac structure and function. Continue treatment of her underlying COPD will be performed as per the medical team and pulmonary. Leg edema: The patient's leg edema may be multifactorial in etiology; however, further situation of a cardiac etiology will be given after results of her echocardiogram. We will continue leg elevation as well as diuretics. Hyperkalemia: We will continue to follow her hyperkalemia following administration of diuretics. If levels remain high, consideration for an agent such as Kayexalate will be given. Diabetes mellitus: Continue treatment as per the medical staff team Thank you for allowing us to participate in the care of your patient. Please do not hesitate to contact us further with any questions. Sincerely, Priyank Flaherty MD [facility] Consult Acknowledgment - Thank you for your consult request.
[2018-01-12 14:00] VITALS: BP 150/70
[2018-01-12 22:24] VITALS: BP 170/110
[2018-01-13 01:08] VITALS: BP 180/90
[2018-01-13 01:39] LABS: ABSOLUTE BASOPHIL COUNT 0.1 /CUMM (0.0-0.2); ABSOLUTE EOSINOPHIL COUNT 0 /CUMM (0.0-0.7); ABSOLUTE MONOCYTE COUNT 0.4 /CUMM (0.10-0.60); BASOPHIL % 0.8 % (0.0-2.0); EOSINOPHIL % 0 % (0-5); GRANULOCYTE % 91.2 % (42.2-75.2); HEMATOCRIT 33.1 % (37-47); MEAN CORPUSCULAR HGB 25.5 PG (27.0-31.0); MEAN CORPUSCULAR HGB CONC 31.8 G/DL (33.0-37.0); MEAN CORPUSCULAR VOLUME 80.4 FL (81.0-99.0); MEAN PLATELET VOLUME 8.1 FL (7.4-10.4); PLATELET COUNT 446 /CUMM (130-400); RBC DISTRIBUTION WIDTH 19.5 % (11.5-14.5); RED BLOOD CELL CT 4.12 /CUMM (4.20-5.40); WHITE BLOOD CELL COUNT 16.5 /CUMM (4.8-10.8)
--- NOTE | 2018-01-13 02:05 | RADIOLOGY REPORT ---
EXAMINATIONS: CHEST 1 VIEW AND ABDOMEN 1 VIEW CLINICAL INFORMATION: Abdominal pain, nausea. Vomiting. COMPARISON: October 31, 2017. TECHNIQUE: An AP view of the chest is provided. An AP view of the abdomen is provided. FINDINGS: The cardiac silhouette is prominent, though stable. The mediastinal and hilar contours are unremarkable. There are neither pleural effusions nor pneumothoraces. There are no consolidations. The osseous structures are unremarkable. There are no dilated loops of bowel. IMPRESSION: Stable prominent cardiac silhouette. No consolidations. No dilated loops of bowel.
[2018-01-13 06:37] VITALS: BP 148/86
--- NOTE | 2018-01-13 07:12 | PN- Housestaff ---
Toby GARCIA,[facility] 01/13/18 0712: Subjective Follow-up For: Lower extremity swelling CHF Hyperkalemia COPD Subjective: Patient was seen and examined at bedside. She reports doing okay. Has no complaints. Review of Systems Constitutional: Reports: no symptoms. Objective Last 24 Hrs of Vital Signs/I&O Vital Signs Date Time Temp Pulse Resp B/P B/P Pulse O2 O2 Flow FiO2 Mean Ox Delivery Rate 01/13 0637 98.9 78 23 148/86 98 01/13 0442 75 170/100 01/13 0114 88 Nasal 2.0L Cannula 01/13 0108 99.0 91 34 180/90 96 01/12 2224 97.4 68 22 170/110 93 01/12 2155 Nasal 2.0L Cannula 01/12 1400 98.3 78 20 150/70 94 01/12 1034 Nasal 2.0L Cannula Intake & Output 01/13 1600 01/13 0800 01/13 0000 Intake Total 120 360 Output Total 400 500 Balance -280 -140 Intake, Oral 120 360 Output, Urine 400 500 Patient 236 lb Weight Physical Exam General Appearance: Alert, Oriented X3, Cooperative, No Acute Distress Skin: No Rashes, No Breakdown Skin Temp/Moisture Exam: Warm/Dry Sepsis Skin Exam (color): Normal for Ethnicity HEENT: Atraumatic Cardiovascular: Normal S1, Normal S2, No Murmurs Lungs: Normal Air Movement Abdomen: Soft, No Tenderness Neurological: Normal Speech Extremities: b/l lower extremity edema with stasis skin changes Last 24 Hrs of Lab/Eric Results Last 24 Hrs of Labs/Mics: Laboratory Tests 01/13/18 0642: Anion Gap 10, Estimated GFR > 60, BUN/Creatinine Ratio 65.0 H, Hemoglobin A1c 8.3 H, Vitamin B12 873, CBC w Diff Pending, WBC Pending, RBC Pending, Hgb Pending, Hct Pending, MCV Pending, MCH Pending, MCHC Pending, RDW Pending, Plt Count Pending, MPV Pending, Gran % Pending, Lymphocytes % Pending, Monocytes % Pending, Eosinophils % Pending, Basophils % Pending, Absolute Granulocytes Pending, Absolute Lymphocytes Pending, Absolute Monocytes Pending, Absolute Eosinophils Pending, Absolute Basophils Pending 01/13/18 0119: Troponin I 0.01, CBC w Diff MAN DIFF ORDERED, RBC 4.12 L, MCV 80.4 L, MCH 25.5 L, MCHC 31.8 L, RDW 19.5 H, MPV 8.1, Gran % 91.2 H, Lymphocytes % 5.8 L, Monocytes % 2.2, Eosinophils % 0, Basophils % 0.8, Absolute Granulocytes 15.0 H , Segmented Neutrophils 94 H, Absolute Lymphocytes 1.0 L, Lymphocytes 5 L, Monocytes 1 L, Absolute Monocytes 0.4, Absolute Eosinophils 0, Absolute Basophils 0.1, Platelet Estimate INCREASED, Polychromasia 1+, Hypochromic- Microcytic 1+, Poikilocytosis 1+, Anisocytosis 1+, Microcytic Cells 1+, Ovalocytes 1+, Fld Total RBCs Counted 100 01/12/18 2255: Anion Gap 11, Estimated GFR > 60, BUN/Creatinine Ratio 57.8 H 01/12/18 2100: Sodium Cancelled, Potassium Cancelled, Chloride Cancelled, Carbon Dioxide Cancelled, Anion Gap Cancelled, BUN Cancelled, Creatinine Cancelled, BUN/ Creatinine Ratio Cancelled 01/12/18 1700: Sodium Cancelled, Potassium Cancelled, Chloride Cancelled, Carbon Dioxide Cancelled, Anion Gap Cancelled, BUN Cancelled, Creatinine Cancelled, BUN/ Creatinine Ratio Cancelled 01/12/18 1512: 01/12/18 1309: Troponin I < 0.01 01/12/18 1037: Sodium Cancelled, Potassium Cancelled, Chloride Cancelled, Carbon Dioxide Cancelled, Anion Gap Cancelled, BUN Cancelled, Creatinine Cancelled, BUN/ Creatinine Ratio Cancelled Assessment/Plan Assessment: 72-year-old female with past medical history of hypertension, COPD not on home oxygen, insulin-dependent diabetes mellitus presented to the ED with chief complaint of bilateral lower extremity swelling. Assessment: 1. Acute Hypoxic Respiratory Failure 2. COPD Exacerbation 3. Hyperkalemia 4. Microcytosis 5. History of Hypertension 6. History of Diabetes Plan: * Continue monitoring on telemetry for now. * Continue IV Lasix 40mg daily * IV SoluMedrol 40mg today. Will switch her to PO Prednisone from tomorrow * TRC/nebs as needed * Continue Azithromycin for 2 more days. * Her hyperkalemia persists but does not warrant treatment at this time. It should improve with Lasix as well. * Iron studies showed low Fe with normal ferritin and TIBC. With a borderline microcytosis would benefit from Fe supplementation. * Echocardiogram to assess for LVEF and CHF - pending * Continue leg elevation * Appreciate cardio recs * Diet: CC1 * DVT Prophylaxis: SC Lovenox * Code: Full Code Problem List: 1. COPD exacerbation Pain Ratin Pain Location: none Pain Goal: Remain pain free Pain Plan: none Tomorrow's Labs & Rationales: CBC, BEP Nicole Franco 01/13/18 1121: Attending MD Review Statement Attending Statement Attending MD Statement: examined this patient, discuss w/resident/PA/BRINEYARD SUPERVISOR, agreed w/resident/PA/BRINEYARD SUPERVISOR, discussed with family, reviewed EMR data (avail), discussed with nursing, discussed with case mgmt, reviewed images, amended to note Attending Assessment/Plan: SOB multifactorial and patient on iv lasix and iv steroids with some improvement. Cardiology has been consulted. Plan is to taper steroids today, c/w bronchodilators, iv lasix and oxygen supplementation. ECHO as per cardiology. Cont current care..
[2018-01-13 08:34] LABS: ABSOLUTE BASOPHIL COUNT 0 /CUMM (0.0-0.2); ABSOLUTE EOSINOPHIL COUNT 0 /CUMM (0.0-0.7); ABSOLUTE GRANULOCYTE CT 16.7 /CUMM (1.4-6.5); ABSOLUTE LYMPH COUNT 0.7 /CUMM (1.2-3.4); ABSOLUTE MONOCYTE COUNT 0.8 /CUMM (0.10-0.60); BASOPHIL % 0 % (0.0-2.0); EOSINOPHIL % 0 % (0-5); HEMATOCRIT 30.3 % (37-47); MEAN CORPUSCULAR HGB CONC 30.9 G/DL (33.0-37.0); MEAN CORPUSCULAR VOLUME 80.8 FL (81.0-99.0); MEAN PLATELET VOLUME 8.1 FL (7.4-10.4); PLATELET COUNT 381 /CUMM (130-400); RBC DISTRIBUTION WIDTH 19.8 % (11.5-14.5); RED BLOOD CELL CT 3.75 /CUMM (4.20-5.40); WHITE BLOOD CELL COUNT 18.2 /CUMM (4.8-10.8)
[2018-01-13 09:42] LABS: GRANULOCYTE % 91.7 % (42.2-75.2)
--- NOTE | 2018-01-13 12:21 | PN- Cardiology ---
Subjective Subjective: Denies shortness of breath at rest. Reports some elbow pain without chest pain. Objective Vital Signs and I&Os Vital Signs Date Time Temp Pulse Resp B/P B/P Pulse O2 O2 Flow FiO2 Mean Ox Delivery Rate 01/13 0800 94 Nasal 4.0L Cannula 01/13 0637 98.9 78 23 148/86 98 01/13 0442 75 170/100 01/13 0114 88 Nasal 2.0L Cannula 01/13 0108 99.0 91 34 180/90 96 01/12 2224 97.4 68 22 170/110 93 01/12 2155 Nasal 2.0L Cannula 01/12 1400 98.3 78 20 150/70 94 Intake & Output 01/13 1600 01/13 0800 01/13 0000 01/12 1600 01/12 0800 01/12 0000 Intake Total 113 087 0154 211 Output Total 152 489 9133 605 Balance -280 -140 1170 -1364 -605 Intake, IV 350 11 Intake, Oral 120 360 820 200 Output, Urine 255 257 [id number] 605 Patient 236 lb 238 lb Weight Weight Bed scale Measurement Method Physical Exam: General: no apparent distress. Alert. Obese. Eyes: No obvious scleral icterus. HEENT: No jugular venous distention or abnormal jugular venous pulsations. Cardiovascular: Normal intensity S1/S2. PMI not grossly displaced. Respiratory: No rales or rhonchi Abdomen: Soft, nontender with no guarding or rebound tenderness. Musculoskeletal: No clubbing or cyanosis noted; 1+ lower extremity edema Skin: Stasis changes noted Current Medications: Current Medications Sig/Bao Start time Last Medication Dose Route Stop Time Status Admin Acetaminophen 650 MG Q6P PRN 01/12 0130 AC 01/13 PO 1126 Acetaminophen 1,000 MG Q6P PRN 01/12 0130 AC IV Albuterol Sulfate 3 ML Q4-PRN PRN 01/13 0115 AC 01/13 INH 0101 Albuterol Sulfate 2 PUF Q4P PRN 01/12 1045 AC INH Amlodipine Besylate 5 MG ONCE ONE 01/13 0445 DC 01/13 PO 01/13 0446 0442 Atorvastatin Calcium 20 MG 1700 01/12 1700 AC 01/12 PO 1705 Azithromycin 500 MG DAILY 01/12 0900 AC 01/13 Sodium Chloride 250 ML IV 01/14 0959 0904 Benzonatate 100 MG TID 01/13 0045 AC 01/13 PO 0850 Calcium Carbonate 500 MG DAILY 01/13 0900 AC 01/13 PO 0850 Calcium Carbonate 500 MG .STK-MED ONE 01/12 2314 DC PO 01/12 2315 Enoxaparin Sodium 40 MG DAILY 01/12 0900 AC 01/13 SC 0908 Ferrous Sulfate 325 MG DAILY 01/13 0900 AC 01/13 PO 0850 Furosemide 40 MG DAILY 01/12 0900 AC 01/13 IV 0848 Insulin Aspart 0 TIDAC 01/12 0800 AC 01/13 DC 0909 Insulin Detemir 15 UNITS BID 01/12 2100 AC 01/13 SC 0910 Methylprednisolone 40 MG Q12 01/12 2100 MA 01/13 IV 0855 Methylprednisolone 40 MG Q8 01/12 0100 MA 01/12 IV 0558 Omeprazole 40 MG DAILY AC 01/13 0700 CAN PO Omeprazole 40 MG DAILY AC 01/13 0045 DC PO Pantoprazole Sodium 40 MG DAILY 01/13 0115 AC 01/13 IV 0908 Polyethylene Glycol 17 GM AT BEDTIME PRN 01/12 0130 AC PO Prednisone 40 MG DAILY 01/13 0904 PO Sodium Polystyrene 60 ML ONCE ONE 01/12 1900 MA 01/12 Sulfonate PO 01/12 Results Last 48 Hrs of Labs/Mics: Laboratory Tests 01/13/18 0642: Anion Gap 10, Estimated GFR > 60, BUN/Creatinine Ratio 65.0 H, Hemoglobin A1c 8.3 H, Vitamin B12 873, CBC w Diff NO MAN DIFF REQ, RBC 3.75 L, MCV 80.8 L, MCH 25.0 L, MCHC 30.9 L, RDW 19.8 H, MPV 8.1, Gran % 91.7 H, Lymphocytes % 4.1 L, Monocytes % 4.2, Eosinophils % 0, Basophils % 0, Absolute Granulocytes 16.7 H, Absolute Lymphocytes 0.7 L, Absolute Monocytes 0.8 H, Absolute Eosinophils 0, Absolute Basophils 0 01/13/18 0119: Troponin I 0.01, CBC w Diff MAN DIFF ORDERED, RBC 4.12 L, MCV 80.4 L, MCH 25.5 L, MCHC 31.8 L, RDW 19.5 H, MPV 8.1, Gran % 91.2 H, Lymphocytes % 5.8 L, Monocytes % 2.2, Eosinophils % 0, Basophils % 0.8, Absolute Granulocytes 15.0 H , Segmented Neutrophils 94 H, Absolute Lymphocytes 1.0 L, Lymphocytes 5 L, Monocytes 1 L, Absolute Monocytes 0.4, Absolute Eosinophils 0, Absolute Basophils 0.1, Platelet Estimate INCREASED, Polychromasia 1+, Hypochromic- Microcytic 1+, Poikilocytosis 1+, Anisocytosis 1+, Microcytic Cells 1+, Ovalocytes 1+, Fld Total RBCs Counted 100 01/12/18 2255: Anion Gap 11, Estimated GFR > 60, BUN/Creatinine Ratio 57.8 H 01/12/18 2100: Sodium Cancelled, Potassium Cancelled, Chloride Cancelled, Carbon Dioxide Cancelled, Anion Gap Cancelled, BUN Cancelled, Creatinine Cancelled, BUN/ Creatinine Ratio Cancelled 01/12/18 1700: Sodium Cancelled, Potassium Cancelled, Chloride Cancelled, Carbon Dioxide Cancelled, Anion Gap Cancelled, BUN Cancelled, Creatinine Cancelled, BUN/ Creatinine Ratio Cancelled 01/12/18 1512: 01/12/18 1309: Troponin I < 0.01 01/12/18 1037: Sodium Cancelled, Potassium Cancelled, Chloride Cancelled, Carbon Dioxide Cancelled, Anion Gap Cancelled, BUN Cancelled, Creatinine Cancelled, BUN/ Creatinine Ratio Cancelled 01/12/18 0627: Anion Gap 10, Estimated GFR > 60, BUN/Creatinine Ratio 63.8 H, Troponin I < 0.01, CBC w Diff MAN DIFF ORDERED, RBC 4.17 L, MCV 80.4 L, MCH 25.2 L, MCHC 31.3 L, RDW 19.7 H, MPV 8.4, Gran % 95.1 H, Lymphocytes % 4.6 L, Monocytes % 0.2 L, Eosinophils % 0, Basophils % 0.1, Absolute Granulocytes 13.8 H, Absolute Lymphocytes 0.7 L, Absolute Monocytes 0 L, Absolute Eosinophils 0, Absolute Basophils 0, Platelet Estimate VERIFIED BY SMEAR, Polychromasia 1+, Poikilocytosis 1+, Basophilic Stippling SLIGHT, Anisocytosis 1+, Ovalocytes 1+ 01/11/18 1835: Urine Color YEL, Urine Clarity CLDY H, Urine pH 6.0, Ur Specific Farrell 1.020, Urine Protein TRACE H, Urine Ketones NEG, Urine Nitrite NEG, Urine Bilirubin NEG, Urine Urobilinogen 0.2, Ur Leukocyte Esterase LARGE H, Ur Microscopic SEDIMENT EXAMINED, Urine RBC RARE, Urine WBC 10-15 H, Ur Epithelial Cells PACKD H, Urine Bacteria PACKD H, Urine Hemoglobin TRACE-INTACT, Urine Glucose NEG 01/11/18 1802: Anion Gap 9, Estimated GFR > 60, BUN/Creatinine Ratio 56.7 H, Glucose 227 H, Calcium 8.5, Iron 34 L, TIBC 350, Ferritin 36.6, Total Bilirubin 0.3, AST 20, ALT 56 H, Alkaline Phosphatase 170 H, Troponin I < 0.01, Lvj-D-Qpctogyexin Pept 4880 H, Total Protein 6.1 L, Albumin 3.2 L, Globulin 2.9, Albumin/ Globulin Ratio 1.1, D-Dimer High Sensitivty 915 H, CBC w Diff NO MAN DIFF REQ, RBC 3.74 L, MCV 80.3 L, MCH 25.5 L, MCHC 31.7 L, RDW 19.9 H, MPV 7.4, Gran % 80.7 H, Lymphocytes % 10.2 L, Monocytes % 6.4, Eosinophils % 2.5, Basophils % 0.2, Absolute Granulocytes 9.7 H, Absolute Lymphocytes 1.2, Absolute Monocytes 0.8 H, Absolute Eosinophils 0.3, Absolute Basophils 0 Microbiology 01/11 2143 URINE ROUT: Urine Culture - COMP Recent Imaging Studies: Telemetry tracings were personally reviewed and shows sinus rhythm CXR: Stable prominent cardiac silhouette. No consolidations. No dilated loops of bowel. Assessment/Plan Assessment/Plan 1. Dyspnea; likely multifactorial 2. COPD 3. Heart failure with preserved ejection fraction 4. Likely venous insufficiency 5. Obesity 6. Hypertension 7. Diabetes 8. Hyperkalemia Would continue on IV Lasix. Would not start BOUCHRA inhibitor therapy for now given the hyperkalemia. Echocardiogram is pending. Steroid regimen per the medical team. Might be a candidate for carvedilol based on echocardiogram results and for blood pressure control if no objection from pulmonary as blood pressure is above goal. Calcium channel debra likely not ideal in the setting of lower extremity edema. Jose Chi MD [facility] Continue telemetry? Yes
[2018-01-13 14:00] VITALS: BP 112/60
[2018-01-13 22:23] VITALS: BP 162/70
--- NOTE | 2018-01-14 07:04 | PN- Housestaff ---
Toby GARCIA,[facility] 01/14/18 0704: Subjective Follow-up For: Lower extremity swelling CHF Hyperkalemia COPD Tele-Events Since Last Visit: SB/NSR with HR 59-65. No overnight events. Subjective: Patient reports feeling okay. She does not elaborate if her dyspnea has improved since she came in to the hospital. She does not have any complaints. Review of Systems Constitutional: Reports: no symptoms. Objective Last 24 Hrs of Vital Signs/I&O Vital Signs Date Time Temp Pulse Resp B/P B/P Pulse O2 O2 Flow FiO2 Mean Ox Delivery Rate 01/14 0717 97.5 70 18 130/70 100 Nasal 2.0L Cannula 01/14 0000 Nasal 3.0L Cannula 01/13 2223 98.5 75 16 162/70 98 Nasal Cannula 01/13 1600 Nasal 3.0L Cannula 01/13 1400 98.3 73 20 112/60 95 01/13 1347 95 Nasal 2.0L Cannula Intake & Output 01/14 1600 01/14 0800 01/14 0000 Intake Total 220 Output Total 450 100 Balance -230 -100 Intake, Oral 220 Number 1 Bowel Movements Output, Urine 450 100 Patient 236 lb Weight Weight Bed scale Measurement Method Physical Exam General Appearance: Alert, Oriented X3, Cooperative, Mild Distress Skin: No Rashes, No Breakdown Skin Temp/Moisture Exam: Warm/Dry Sepsis Skin Exam (color): Normal for Ethnicity HEENT: Atraumatic Cardiovascular: Normal S1, Normal S2, No Murmurs Lungs: Normal Air Movement Abdomen: Soft, No Tenderness Neurological: Normal Speech Extremities: b/l lower extremity 1+ edema with stasis skin changes. Last 24 Hrs of Lab/Eric Results Last 24 Hrs of Labs/Mics: Laboratory Tests 01/14/18 0708: Sodium Pending, Potassium Pending, Chloride Pending, Carbon Dioxide Pending, Anion Gap Pending, BUN Pending, Creatinine Pending, BUN/Creatinine Ratio Pending , CBC w Diff Pending, WBC Pending, RBC Pending, Hgb Pending, Hct Pending, MCV Pending, MCH Pending, MCHC Pending, RDW Pending, Plt Count Pending, MPV Pending Assessment/Plan Assessment: 72-year-old female with past medical history of hypertension, COPD not on home oxygen, insulin-dependent diabetes mellitus presented to the ED with chief complaint of bilateral lower extremity swelling. Assessment: 1. Acute Hypoxic Respiratory Failure 2. COPD Exacerbation 3. Hyperkalemia 4. Microcytosis 5. History of Hypertension 6. History of Diabetes Plan: * Continue oxygen supplementation to maintain target sats >92%. Currently on 2L. Will taper as tolerated * Continue IV Lasix 40mg daily * Start PO Prednisone 40mg today. Will do a quick taper. * TRC/nebs as needed * Continue Azithromycin for 1 more day. * Her hyperkalemia has resolved today. * Iron studies showed low Fe with normal ferritin and TIBC. With a borderline microcytosis would benefit from Fe supplementation. * Echocardiogram to assess for LVEF and CHF - pending * Continue leg elevation * Appreciate cardio recs * Diet: CC1 * DVT Prophylaxis: SC Lovenox * Code: Full Code Problem List: 1. COPD exacerbation Pain Ratin Pain Location: none Pain Goal: Remain pain free Pain Plan: none Tomorrow's Labs & Rationales: CBC, BEP SalvadorNicole 01/14/18 1051: Attending MD Review Statement Attending Statement Attending MD Statement: examined this patient, discuss w/resident/PA/PAINT BOOTH OPERATOR, agreed w/resident/PA/PAINT BOOTH OPERATOR, discussed with family, reviewed EMR data (avail), discussed with nursing, discussed with case mgmt, reviewed images, amended to note Attending Assessment/Plan: Patient seen/examined bedside. She denies any new complaints. She is on 2l oxygen supplementation with minimal use of accessory muscles. Patient has weathers catheter. She is aaox 3 oriented and able to make her own decisions. She has chronic lower extremity venous stasis and significant improvement in lower extrmeity swelling. SOB multifactorial and patient on iv lasix and PO steroids with some improvement. Cardiology f/u. Plan is to taper steroids, c/w bronchodilators, iv lasix and oxygen supplementation. ECHO f/u OOB to chair. Cont current care.. gi/dvt prophylaxis full code.
[2018-01-14 07:17] VITALS: BP 130/70
[2018-01-14 08:08] LABS: ABSOLUTE BASOPHIL COUNT 0 /CUMM (0.0-0.2); ABSOLUTE EOSINOPHIL COUNT 0 /CUMM (0.0-0.7); ABSOLUTE GRANULOCYTE CT 10.6 /CUMM (1.4-6.5); ABSOLUTE LYMPH COUNT 2.1 /CUMM (1.2-3.4); ABSOLUTE MONOCYTE COUNT 1.2 /CUMM (0.10-0.60); BASOPHIL % 0.1 % (0.0-2.0); EOSINOPHIL % 0.1 % (0-5); GRANULOCYTE % 76.1 % (42.2-75.2); MEAN CORPUSCULAR HGB 25.5 PG (27.0-31.0); MEAN CORPUSCULAR HGB CONC 31.5 G/DL (33.0-37.0); MEAN PLATELET VOLUME 8.1 FL (7.4-10.4); PLATELET COUNT 388 /CUMM (130-400); RBC DISTRIBUTION WIDTH 19.1 % (11.5-14.5); RED BLOOD CELL CT 3.95 /CUMM (4.20-5.40); WHITE BLOOD CELL COUNT 13.9 /CUMM (4.8-10.8)
--- NOTE | 2018-01-14 08:51 | PN- Cardiology ---
Subjective Subjective: Patient still complains of mild shortness of breath but denies chest discomfort. Review of Systems: Eyes no blurred or double vision Ears no deafness or ringing Nose and throat no recurrent sinusitis Lungs per history of present illness Heart per history of present illness Abdomen no nausea vomiting Musculoskeletal occasional muscle and joint pains Psych no anxiety or depression Neuro without recurrent headache or seizures Endocrine no heat or cold intolerance Objective Vital Signs and I&Os Vital Signs Date Time Temp Pulse Resp B/P B/P Pulse O2 O2 Flow FiO2 Mean Ox Delivery Rate 01/14 0717 97.5 70 18 130/70 100 Nasal 2.0L Cannula 01/14 0000 Nasal 3.0L Cannula 01/13 2223 98.5 75 16 162/70 98 Nasal Cannula 01/13 1600 Nasal 3.0L Cannula 01/13 1400 98.3 73 20 112/60 95 01/13 1347 95 Nasal 2.0L Cannula Intake & Output 01/14 1600 01/14 0800 01/14 0000 01/13 1600 01/13 0800 01/13 0000 Intake Total 220 800 120 360 Output Total 450 100 950 400 500 Balance -230 -100 -150 -280 -140 Intake, IV 250 Intake, Oral 220 550 120 360 Number 1 Bowel Movements Output, Urine 450 100 950 400 500 Patient 236 lb 236 lb Weight Weight Bed scale Measurement Method Physical Exam: Patient is a well-developed obese female appearing in no acute distress HEENT is unremarkable Neck is supple there is no JVD Lungs few bibasilar rales Heart regular rhythm S1 and S2 are normal no murmurs gallops or rubs Abdomen bowel sounds positive Extremities 1+ edema Current Medications: Current Medications Sig/Bao Start time Last Medication Dose Route Stop Time Status Admin Acetaminophen 650 MG .STK-MED ONE 01/14 1952 DC PO 01/13 1953 Acetaminophen 650 MG .STK-MED ONE 01/13 1124 DC PO 01/13 112 Acetaminophen 650 MG Q6P PRN 01/12 0130 AC 01/14 PO 0629 Acetaminophen 1,000 MG Q6P PRN 01/12 0130 AC IV Albuterol Sulfate 3 ML Q4-PRN PRN 01/13 0115 AC 01/13 INH 0101 Albuterol Sulfate 2 PUF Q4P PRN 01/12 1045 AC INH Atorvastatin Calcium 20 MG 1700 01/12 1700 AC 01/13 PO 1805 Azithromycin 500 MG ONCE ONE 01/14 0900 AC PO 01/14 0901 Azithromycin 500 MG DAILY 01/12 0900 NH 01/13 Sodium Chloride 250 ML IV 01/14 0959 09 Benzonatate 100 MG .[facility] ONE 01/13 1721 DC PO 01/13 1722 Benzonatate 100 MG TID 01/13 0045 AC 01/13 PO 1958 Calcium Carbonate 500 MG DAILY 01/13 0900 AC 01/13 PO 0850 Enoxaparin Sodium 40 MG DAILY 01/12 0900 AC 01/13 SC 0908 Ferrous Sulfate 325 MG DAILY 01/13 0900 AC 01/13 PO 0850 Furosemide 40 MG DAILY 01/12 0900 AC 01/13 IV 0848 Insulin Aspart 0 TIDAC 01/12 0800 01/13 SC 1804 Insulin Detemir 15 UNITS BID 01/12 2100 AC 01/13 SC 2228 Methylprednisolone 40 MG Q12 01/12 2100 DC 01/13 IV 0855 Omeprazole 40 MG DAILY AC 01/14 0700 AC PO Omeprazole 20 MG .[facility] ONE 01/13 1721 DC PO 01/13 1722 Pantoprazole Sodium 40 MG DAILY 01/13 0115 DC 01/13 IV 0908 Polyethylene Glycol 17 GM AT BEDTIME PRN 01/12 0130 AC PO Prednisone 40 MG DAILY 01/13 0904 AC PO Results Last 48 Hrs of Labs/Mics: Laboratory Tests 01/14/18 0708: Anion Gap 11, Estimated GFR > 60, BUN/Creatinine Ratio 57.8 H, CBC w Diff NO MAN DIFF REQ, RBC 3.95 L, MCV 81.0, MCH 25.5 L, MCHC 31.5 L, RDW 19.1 H, MPV 8.1, Gran % 76.1 H, Lymphocytes % 15.0 L, Monocytes % 8.7, Eosinophils % 0.1, Basophils % 0.1, Absolute Granulocytes 10.6 H, Absolute Lymphocytes 2.1, Absolute Monocytes 1.2 H, Absolute Eosinophils 0, Absolute Basophils 0 01/13/18 0642: Anion Gap 10, Estimated GFR > 60, BUN/Creatinine Ratio 65.0 H, Hemoglobin A1c 8.3 H, Vitamin B12 873, CBC w Diff NO MAN DIFF REQ, RBC 3.75 L, MCV 80.8 L, MCH 25.0 L, MCHC 30.9 L, RDW 19.8 H, MPV 8.1, Gran % 91.7 H, Lymphocytes % 4.1 L, Monocytes % 4.2, Eosinophils % 0, Basophils % 0, Absolute Granulocytes 16.7 H, Absolute Lymphocytes 0.7 L, Absolute Monocytes 0.8 H, Absolute Eosinophils 0, Absolute Basophils 0 01/13/18 0119: Troponin I 0.01, CBC w Diff MAN DIFF ORDERED, RBC 4.12 L, MCV 80.4 L, MCH 25.5 L, MCHC 31.8 L, RDW 19.5 H, MPV 8.1, Gran % 91.2 H, Lymphocytes % 5.8 L, Monocytes % 2.2, Eosinophils % 0, Basophils % 0.8, Absolute Granulocytes 15.0 H , Segmented Neutrophils 94 H, Absolute Lymphocytes 1.0 L, Lymphocytes 5 L, Monocytes 1 L, Absolute Monocytes 0.4, Absolute Eosinophils 0, Absolute Basophils 0.1, Platelet Estimate INCREASED, Polychromasia 1+, Hypochromic- Microcytic 1+, Poikilocytosis 1+, Anisocytosis 1+, Microcytic Cells 1+, Ovalocytes 1+, Fld Total RBCs Counted 100 01/12/18 2255: Anion Gap 11, Estimated GFR > 60, BUN/Creatinine Ratio 57.8 H 01/12/18 2100: Sodium Cancelled, Potassium Cancelled, Chloride Cancelled, Carbon Dioxide Cancelled, Anion Gap Cancelled, BUN Cancelled, Creatinine Cancelled, BUN/ Creatinine Ratio Cancelled 01/12/18 1700: Sodium Cancelled, Potassium Cancelled, Chloride Cancelled, Carbon Dioxide Cancelled, Anion Gap Cancelled, BUN Cancelled, Creatinine Cancelled, BUN/ Creatinine Ratio Cancelled 01/12/18 1512: 01/12/18 1309: Troponin I < 0.01 01/12/18 1037: Sodium Cancelled, Potassium Cancelled, Chloride Cancelled, Carbon Dioxide Cancelled, Anion Gap Cancelled, BUN Cancelled, Creatinine Cancelled, BUN/ Creatinine Ratio Cancelled Telemetry personally reviewed sinus bradycardia Assessment/Plan Assessment/Plan 1. Dyspnea; likely multifactorial 2. COPD 3. Heart failure with preserved ejection fraction 4. Likely venous insufficiency 5. Obesity 6. Hypertension 7. Diabetes 8. Hyperkalemia Recommendations 1. Continue to diuresis and renal function closely 2. Echocardiogram is still pending 3. Would not institute BOUCHRA inhibitor given his history of hyperkalemia 4. Unless she has a decreased ejection fraction would avoid beta blockers given his history of COPD Continue telemetry? Yes
--- NOTE | 2018-01-14 11:16 | ECHOCARDIOGRAM REPORT ---
CHLOE DYKES Age: 72 : 1945 Gender: F Exam Date: 01/13/2018 18:45 Exam Location: 1 [address] Ht (in): 62 Wt (lb): 238 BSA: 2.24 BP: 112 / 60 Ordering Physician: Stevo Pablo MD Referring Physician: Adrian Chi M.D. Technologist: Mirtha Bauer RDCS Room Number: 187 Indications: HEART FAILURE Rhythm: Sinus Technical Quality: poor FINDINGS Left Ventricle Normal size left ventricle. Left ventricular wall thickness mildly increased. Normal left ventricular ejection fraction estimated at 60-65%. Right Ventricle Right ventricle not well visualized, grossly normal. Right Atrium Normal right atrial size. Left Atrium Left atrial size at the upper limits of normal. Mitral Valve Mild mitral annular calcification. Trace to mild mitral regurgitation. Aortic Valve Diffuse thickening (sclerosis) of the aortic valve cusps with reduced excursion. Mild aortic stenosis. Tricuspid Valve Tricuspid valve is normal in structure and function. Trace to mild tricuspid regurgitation. Right ventricular systolic pressure estimated to be at upper limits of normal at 36 mmHg. Pulmonic Valve Pulmonic valve not well visualized, grossly normal. Pericardium Minimal pericardial effusion (normal variant). Great Vessels Aortic root and proximal ascending aorta not well visualized, grossly normal. CONCLUSIONS Poor echo window. Normal overall left ventricular systolic function.Right ventricle not well visualised. Minimal to mild Aortic stenosis. Dajuan Johns M.D. (Electronically Signed) Final Date: 14 Jan 2018 11:16 MEASUREMENTS (Male / Female) Normal Values 2D ECHO LV Diastolic Diameter PLAX 4.2 cm 4.2 - 5.9 / 3.9 - 5.3 cm LV Systolic Diameter PLAX 2.4 cm 2.1 - 4.0 cm LV Fractional Shortening PLAX 42.9 % 25 - 46 % LV Ejection Fraction 2D Teich 74.3 % IVS Diastolic Thickness 1.2 cm LVPW Diastolic Thickness 1.2 cm LV Relative Wall Thickness 0.6 RV Internal Dim ED PLAX 2.7 cm 1.9 - 3.8 cm LVOT Diameter 2.1 cm Aortic Root Diameter 3.0 cm LA Systolic Diameter LX 3.6 cm 3.0 - 4.0 / 2.7 - 3.8 cm LA Volume 41.0 cm 18 - 58 / 22 - 52 cm Ascending Aorta Diameter 3.1 cm DOPPLER AV Peak Velocity 205.0 cm/s AV Peak Gradient 16.8 mmHg AV Mean Velocity 124.0 cm/s AV Mean Gradient 7.0 mmHg AV Velocity Time Integral 39.7 cm LVOT Peak Velocity 158.0 cm/s LVOT Peak Gradient 10.0 mmHg LVOT Mean Velocity 101.0 cm/s LVOT Mean Gradient 5.0 mmHg LVOT Velocity Time Integral 31.0 cm LVOT Stroke Volume 107.4 cm AV Area Cont Eq vti 2.7 cm AV Area Cont Eq pk 2.7 cm MV Peak Velocity 128.0 cm/s MV Peak Gradient 6.6 mmHg MV Mean Velocity 76.7 cm/s MV Mean Gradient 3.0 mmHg Mitral E Point Velocity 124.0 cm/s Mitral A Point Velocity 106.0 cm/s Mitral E to A Ratio 1.2 MV PHT Velocity 129.0 cm/s MV Deceleration [place] 402.0 cm/s MV Pressure Half Time 96.3 ms MV Area PHT 2.3 cm MV Deceleration Time 264.0 ms TR Peak Velocity 273.0 cm/s TR Peak Gradient 29.8 mmHg Right Atrial Pressure 5.0 mmHg Pulmonary Artery Systolic Pressu 34.8 mmHg Right Ventricular Systolic Press 34.8 mmHg PV Peak Velocity 86.9 cm/s PV Peak Gradient 3.0 mmHg PV Mean Velocity 51.0 cm/s PV Mean Gradient 1.0 mmHg PV Velocity Time Integral 16.3 cm LV E' Lateral Velocity 8.6 cm/s Mitral E to LV E' Lateral Ratio 14.5 LV E' Septal Velocity 7.1 cm/s Mitral E to LV E' Septal Ratio 17.4
--- NOTE | 2018-01-14 11:23 | Patient Discharge Instructions ---
Discharge Instructions General Discharge Information Special Instructions: Please follow up with your PCP and paper colorer within one week of discharge. Diet Continue normal diet: Yes Recommended Diet: Heart Healthy Activity Full Activity/No Limits: Yes Activity Self Limited: Yes Acute Coronary Syndrome Inclusion Criteria At DC or during hospital stay patient has or had the following: ACS DIAGNOSIS No Discharge Core Measures Meds if any: Prescribed or Continued at Discharge Meds if any: NOT Prescribed or Continued at Discharge Congestive Heart Failure Inclusion Criteria At DC or during hospital stay patient has or had the following: CHF DIAGNOSIS No Discharge Core Measures Meds if any: Prescribed or Continued at Discharge Meds if any: NOT Prescribed or Continued at Discharge Cerebrovascular accident Inclusion Criteria At DC or during hospital stay patient has or had the following: CVA/TIA Diagnosis No Discharge Core Measures Meds if any: Prescribed or Continued at Discharge Meds if any: NOT Prescribed or Continued at Discharge Venous thromboembolism Inclusion Criteria VTE Diagnosis No VTE Type NONE VTE Confirmed by (Test) NONE Discharge Core Measures - Per Current guidelines, there needs to be overlap - treatment for the first 5 days of Warfarin therapy. - If discharged on Warfarin prior to 5 days of - overlap therapy, the patient will need to be - assessed for post discharge needs including - *Post discharge parental anticoagulation - *Warfarin and/or parental anticoagulation education - *Follow up date to check INR post discharge At least 5 days overlap therapy as Inpatient No Meds if any: Prescribed or Continued at Discharge Note: Overlap Therapy is Warfarin and Anticoagulant Meds if any: NOT Prescribed or Continued at Discharge
[2018-01-14 15:00] VITALS: BP 168/70
[2018-01-14 23:20] VITALS: BP 148/80
[2018-01-15 06:49] VITALS: BP 166/86
--- NOTE | 2018-01-15 07:08 | PN- Housestaff ---
Toby GARCIA,[facility] 01/15/18 0707: Subjective Follow-up For: Lower extremity swelling CHF Hyperkalemia COPD Tele-Events Since Last Visit: SB/NSR with HR 59-64. No overnight events. Subjective: Patient was seen and examined at bedside. States feeling okay. Moved OOB to chair yesterday with transient drop in her saturation. Without complaints. Review of Systems Constitutional: Reports: no symptoms. Objective Last 24 Hrs of Vital Signs/I&O Vital Signs Date Time Temp Pulse Resp B/P B/P Pulse O2 O2 Flow FiO2 Mean Ox Delivery Rate 01/15 0649 98.3 64 20 166/86 96 Nasal 2.0L Cannula 01/15 0000 Nasal 2.0L Cannula 01/14 2320 98.0 73 18 148/80 96 Nasal Cannula 01/14 1600 Nasal 2.0L Cannula 01/14 1500 98.0 74 20 168/70 94 Nasal 1.5L Cannula 01/14 1450 94 Nasal 1.5L Cannula 01/14 0717 97.5 70 18 130/70 100 Nasal 2.0L Cannula Intake & Output 01/15 0800 01/15 0000 01/14 1600 Intake Total 0 300 630 Output Total 995 549 5922 Balance -650 -550 -1370 Intake, IV 0 30 Intake, Oral 300 600 Number 2 Bowel Movements Output, Urine [id number] Patient 230 lb Weight Physical Exam General Appearance: Alert, Oriented X3, Cooperative, No Acute Distress Skin: No Rashes, No Breakdown Skin Temp/Moisture Exam: Warm/Dry Sepsis Skin Exam (color): Normal for Ethnicity HEENT: Atraumatic Cardiovascular: Normal S1, Normal S2, No Murmurs Lungs: Normal Air Movement Abdomen: Soft, No Tenderness Neurological: Normal Speech Extremities: b/l lower extremity edema 1+. Stasis skin changes Last 24 Hrs of Lab/Eric Results Last 24 Hrs of Labs/Mics: Laboratory Tests 01/15/18 0630: Sodium Pending, Potassium Pending, Chloride Pending, Carbon Dioxide Pending, Anion Gap Pending, BUN Pending, Creatinine Pending, BUN/Creatinine Ratio Pending , CBC w Diff Pending, WBC Pending, RBC Pending, Hgb Pending, Hct Pending, MCV Pending, MCH Pending, MCHC Pending, RDW Pending, Plt Count Pending, MPV Pending Assessment/Plan Assessment: 72-year-old female with past medical history of hypertension, COPD not on home oxygen, insulin-dependent diabetes mellitus presented to the ED with chief complaint of bilateral lower extremity swelling. Assessment: 1. Acute Hypoxic Respiratory Failure 2. COPD Exacerbation 3. Hyperkalemia - resolved 4. Microcytosis 5. History of Hypertension 6. History of Diabetes Plan: * Continue oxygen supplementation to maintain target sats >92%. Stays on 2L. Will taper as tolerated * Continue IV Lasix 40mg for today. PO Lasix from tomorrow. * Continue PO Prednisone 40mg today. Will do a quick taper. * TRC/nebs as needed * Iron studies showed low Fe with normal ferritin and TIBC. With a borderline microcytosis would benefit from Fe supplementation. * Echocardiogram showed normal left ventricular systolic function. * Continue leg elevation * Appreciate cardio recs * Diet: CC1 * DVT Prophylaxis: SC Lovenox * Code: Full Code Problem List: 1. COPD exacerbation Pain Ratin Pain Location: none Pain Goal: Remain pain free Pain Plan: none Tomorrow's Labs & Rationales: CBC, BEP Nicole Franco 01/15/18 0937: Attending MD Review Statement Attending Statement Attending MD Statement: examined this patient, discuss w/resident/PA/DAY CARE HOME MOTHER, agreed w/resident/PA/DAY CARE HOME MOTHER, discussed with family, reviewed EMR data (avail), discussed with nursing, discussed with case mgmt, reviewed images, amended to note Attending Assessment/Plan: Patient denies any new complaints. She is aaox 3 oriented. Vitals stable. Patient switch to PO lasix and PO Prednisone taper. Encouraged to work with PT. Wean off oxygen.
--- NOTE | 2018-01-15 08:07 | Discharge Summary ---
Visit Information Visit Dates Admission Date: 01/11/18 Discharge Date: 01/18/18 Hospital Course Course Attending Physician: Nicole Franco MD Primary Care Physician: Felicia Shepard MD Hospital Course: 72-year-old female with past medical history of hypertension, COPD not on home oxygen, insulin-dependent diabetes mellitus presented to the ED with chief complaint of bilateral lower extremity swelling. Below is a list of problems that were addressed during this admisison stay Acute Hypoxic Respiratory Failure COPD Exacerbation Hyperkalemia Borderline Microcytosis Patient presented to the ED with complains of bilateral lower extremity swelling with weeping fluid. On admission she was found to be hypoxic to 86% and started on oxygen supplementation along with TRC/nebs as needed. Her dyspnea is likely multifactorial, including underlying COPD as well as likely heart failure. She had a significantly elevated BNP on admission and lower extremity edema on exam. She was started on IV Lasix with good diuresis observed each day. Echocardiogram done was limited but showed grossly normal left ventricular function. Her Lasix was switched to PO (home dose) as her condition improved. She was also started on a steroid taper for possible COPD exacerbation which is to be continued as an outpatient. Her oxygen was weaned down as tolerated. However, she was unable to be completely weaned off. She would require home oxygen. Her K was elevated on admission and 1st hospital day. EKG did not show any changes. She received a dose of kayexalate, calcium gluconate and IV insulin which resolved the hyperkalemia. Her CBC showed anemia with borderline MCV (80.8). Iron studies were suggestive of iron deficiency, hence she was started on oral iron supplementation. Allergies: Coded Allergies: ketorolac (From TORADOL) (Mild, "FEVER AND CHILLS" 10/28/16) raspberry (UNKNOWN 10/28/16) Uncoded Allergies: TIDE DETERGENT (03/21/11) Significant Procedures: SERVICE DATE: 01/13/18-06 EXAM TYPE: CARD - ECHOCARDIOGRAM FINDINGS Left Ventricle Normal size left ventricle. Left ventricular wall thickness mildly increased. Normal left ventricular ejection fraction estimated at 60-65%. Right Ventricle Right ventricle not well visualized, grossly normal. Right Atrium Normal right atrial size. Left Atrium Left atrial size at the upper limits of normal. Mitral Valve Mild mitral annular calcification. Trace to mild mitral regurgitation. Aortic Valve Diffuse thickening (sclerosis) of the aortic valve cusps with reduced excursion. Mild aortic stenosis. Tricuspid Valve Tricuspid valve is normal in structure and function. Trace to mild tricuspid regurgitation. Right ventricular systolic pressure estimated to be at upper limits of normal at 36 mmHg. Pulmonic Valve Pulmonic valve not well visualized, grossly normal. Pericardium Minimal pericardial effusion (normal variant). Great Vessels Aortic root and proximal ascending aorta not well visualized, grossly normal. CONCLUSIONS Poor echo window. Normal overall left ventricular systolic function.Right ventricle not well visualised. Minimal to mild Aortic stenosis. SERVICE DATE: 01/13/18 EXAM TYPE: RAD - XRY-PORTABLE ABDOMEN; XRY-PORTABLE CHEST XRAY FINDINGS: The cardiac silhouette is prominent, though stable. The mediastinal and hilar contours are unremarkable. There are neither pleural effusions nor pneumothoraces. There are no consolidations. The osseous structures are unremarkable. There are no dilated loops of bowel. IMPRESSION: Stable prominent cardiac silhouette. No consolidations. No dilated loops of bowel. SERVICE DATE: 01/11/18 EXAM TYPE: CAT - CTA CHEST-PULMONARY EMBOLISM FINDINGS: QUALITY OF STUDY/CONTRAST BOLUS: Satisfactory PULMONARY ARTERIES: No central or segmental pulmonary emboli. LUNG: No focal consolidation, nodules or masses. PLEURA: No pleural effusion or pneumothorax. MEDIASTINUM: Normal heart size. No pericardial effusion. No hilar or mediastinal lymphadenopathy. CHEST WALL/AXILLA: No axillary or internal mammary lymphadenopathy. OSSEOUS STRUCTURES: There is a partially healed fracture of the right posterior eleventh rib. UPPER ABDOMEN: There is diffuse fatty infiltration of the liver. IMPRESSION: No evidence of acute or chronic pulmonary emboli. Partially healed fracture of the right posterior eleventh rib. Disposition Summary Disposition Principal Diagnosis: Acute Hypoxic Respiratory Failure COPD Exacerbation Hyperkalemia Microcytosis Additional Diagnosis: hypertension COPD insulin-dependent diabetes mellitus Discharge Disposition: home health services Discharge Instructions General Discharge Information Code Status: Full Code Patient's Diet: Diabetic Patient's Activity: As tolerated Follow-Up Instructions/Appts: Please follow up with your PCP and food crops farm hand within one week of discharge. Medications at Discharge Discharge Medications: Continue taking these medications: Sitagliptin Phosphate (Januvia) 100 MG TABLET 0.5 Tablet ORAL TWICE DAILY Qty = 30 Comments: NOT GIVEN IN HOSPITAL Montelukast Sodium (Montelukast Sodium) 10 MG TABLET 10 Milligram ORAL DAILY Qty = 30 Comments: NOT GIVEN IN HOSPITAL Tiotropium Cedar (Spiriva) 18 MCG CAP.W.DEV 1 Capsule INHALATION DAILY Qty = 30 Comments: NOT GIVEN IN HOSPITAL Insulin Glargine,Hum.rec.anlog (Lantus Solostar) 100 UNIT/ML (3 ML) INSULN.PEN 15 Units Inject into fatty tissue TWICE DAILY Qty = 15 Comments: Last Taken: 01/18/18 Time: 8:30 AM Simvastatin (Simvastatin*) 20 MG TABLET 20 Milligram ORAL DAILY Qty = 30 Comments: Last Taken: 01/17/18 Time: 5:00 PM Furosemide (Furosemide) 40 MG TABLET 40 Milligram ORAL DAILY Qty = 30 Comments: Last Taken: 01/18/18 Time: 8:30 AM Esomeprazole (Nexium) 40 MG CAPSULE.DR 1 Capsule ORAL DAILY BEFORE BREAKFAST Qty = 30 Comments: NOT GIVEN IN HOSPITAL Gabapentin (Gabapentin) 300 MG CAPSULE 1 Capsule ORAL TWICE DAILY Qty = 60 Comments: NOT GIVEN IN HOSPITAL Albuterol Sulfate (Proair Hfa) 90 MCG HFA.AER.AD 2 Puff Inhale through mouth EVERY 4 HOURS NEEDED as needed for Shortness of Breath Qty = 1 Comments: Last Taken: 01/13/18 Time: 1:00 AM Start taking the following new medications: Prednisone (Prednisone) 10 MG TABLET 1 Tablet ORAL DAILY Qty = 4 No Refills Instructions: .. Comments: take 2 tablets of Prednisone 10mg on 01/19/18 then take 1 tablet of Prednisone 10mg on 01/20/18 and 01/21/18 Last Taken: 01/18/18 Time: 8:30 Ferrous Sulfate (Ferrous Sulfate) 325 MG (65 MG IRON) TABLET 1 Tablet ORAL DAILY Qty = 30 No Refills Instructions: . Comments: Last Taken: 01/18/18 Time: 8:30 AM Losartan Potassium (Losartan Potassium) 50 MG TABLET 50 Milligram ORAL DAILY Qty = 30 No Refills Instructions: . Comments: Last Taken: 01/18/18 Time: 8:30 AM Copies To: Drea GARCIA,Felicia Ferreira Attending MD Review Statement Documenting Attending: Salvador GARCIA,Nicole Other Findings: SOB multiofactorial with COPD exacerbation, CHF with preserved EF, Chronic venous stasis/insufficiency. Patient clinically improved with iv lasix and iv steroids. Discharging physician Dr Cameron Armas MD FOLLOW UP PCP in 1 week of d/c Cardiology in 3-4 weeks of dc
[2018-01-15 08:08] LABS: ABSOLUTE BASOPHIL COUNT 0.1 /CUMM (0.0-0.2); ABSOLUTE EOSINOPHIL COUNT 0 /CUMM (0.0-0.7); ABSOLUTE GRANULOCYTE CT 11.9 /CUMM (1.4-6.5); ABSOLUTE LYMPH COUNT 2.6 /CUMM (1.2-3.4); ABSOLUTE MONOCYTE COUNT 1.5 /CUMM (0.10-0.60); BASOPHIL % 0.4 % (0.0-2.0); EOSINOPHIL % 0.2 % (0-5); GRANULOCYTE % 73.9 % (42.2-75.2); HEMATOCRIT 34.3 % (37-47); MEAN CORPUSCULAR HGB 25.4 PG (27.0-31.0); MEAN CORPUSCULAR HGB CONC 31.5 G/DL (33.0-37.0); MEAN CORPUSCULAR VOLUME 80.6 FL (81.0-99.0); MEAN PLATELET VOLUME 8.1 FL (7.4-10.4); PLATELET COUNT 422 /CUMM (130-400); RBC DISTRIBUTION WIDTH 18.9 % (11.5-14.5); RED BLOOD CELL CT 4.26 /CUMM (4.20-5.40); WHITE BLOOD CELL COUNT 16.1 /CUMM (4.8-10.8)
--- NOTE | 2018-01-15 11:55 | PN- Cardiology ---
Subjective Subjective: Patient is resting comfortably without new complaint. Objective Vital Signs and I&Os Vital Signs Date Time Temp Pulse Resp B/P B/P Pulse O2 O2 Flow FiO2 Mean Ox Delivery Rate 01/15 0649 98.3 64 20 166/86 96 Nasal 2.0L Cannula 01/15 0000 Nasal 2.0L Cannula 01/14 2320 98.0 73 18 148/80 96 Nasal Cannula 01/14 1600 Nasal 2.0L Cannula 01/14 1500 98.0 74 20 168/70 94 Nasal 1.5L Cannula 01/14 1450 94 Nasal 1.5L Cannula Intake & Output 01/15 1600 01/15 0800 01/15 0000 01/14 1600 01/14 0800 01/14 0000 Intake Total 0 300 630 220 Output Total 300 521 071 9531 450 100 Balance -300 -650 -550 -1370 -230 -100 Intake, IV 0 30 Intake, Oral 300 600 220 Number 1 2 1 Bowel Movements Output, Urine 300 861 903 4093 450 100 Patient 230 lb 236 lb Weight Weight Bed scale Measurement Method Physical Exam: General: no apparent distress. Alert. Obese. Eyes: No obvious scleral icterus. HEENT: No jugular venous distention or abnormal jugular venous pulsations. Cardiovascular: Normal intensity S1/S2. PMI not grossly displaced. Respiratory: No rales or rhonchi Abdomen: Soft, nontender with no guarding or rebound tenderness. Musculoskeletal: No clubbing or cyanosis noted; 1+ lower extremity edema Skin: Stasis changes noted Current Medications: Current Medications Sig/Bao Start time Last Medication Dose Route Stop Time Status Admin Acetaminophen 650 MG .STK-MED ONE 01/14 192 DC PO 01/14 192 Acetaminophen 650 MG .STK-MED ONE 01/14 1327 DC PO 01/14 1328 Acetaminophen 650 MG Q6P PRN 01/12 0130 01/15 PO 0923 Acetaminophen 1,000 MG Q6P PRN 01/12 0130 AC IV Albuterol Sulfate 3 ML Q4-PRN PRN 01/13 0115 AC 01/13 INH 0101 Albuterol Sulfate 2 PUF Q4P PRN 01/12 1045 AC INH Atorvastatin Calcium 20 MG 1700 01/12 1700 AC 01/14 PO 1607 Benzonatate 100 MG TID 01/13 0045 AC 01/15 PO 0903 Calcium Carbonate 500 MG DAILY 01/13 0900 AC 01/15 PO 0903 Enoxaparin Sodium 40 MG DAILY 01/12 0900 AC 01/15 SC 09 Ferrous Sulfate 325 MG DAILY 01/13 09 AC 01/15 PO 09 Furosemide 40 MG DAILY 01/15 09 AC 01/15 PO 0923 Furosemide 40 MG DAILY 01/12 0900 DC 01/14 IV 0831 Insulin Aspart 0 TIDAC/HS 01/15 0800 AC SC Insulin Aspart 0 TIDAC 01/12 0800 DC 01/14 SC 1222 Insulin Detemir 15 UNITS BID 01/12 2100 AC 01/15 SC 0924 Omeprazole 40 MG DAILY AC 01/14 0700 AC 01/15 PO 0601 Polyethylene Glycol 17 GM AT BEDTIME PRN 01/12 0130 AC PO Prednisone 40 MG DAILY 01/13 09 AC 01/15 PO 902 Results Last 48 Hrs of Labs/Mics: Laboratory Tests 01/15/18 0630: Anion Gap 7, Estimated GFR > 60, BUN/Creatinine Ratio 58.8 H, CBC w Diff NO MAN DIFF REQ, RBC 4.26, MCV 80.6 L, MCH 25.4 L, MCHC 31.5 L, RDW 18.9 H, MPV 8.1 , Gran % 73.9, Lymphocytes % 16.4 L, Monocytes % 9.1, Eosinophils % 0.2, Basophils % 0.4, Absolute Granulocytes 11.9 H, Absolute Lymphocytes 2.6, Absolute Monocytes 1.5 H, Absolute Eosinophils 0, Absolute Basophils 0.1 01/14/18 0708: Anion Gap 11, Estimated GFR > 60, BUN/Creatinine Ratio 57.8 H, CBC w Diff NO MAN DIFF REQ, RBC 3.95 L, MCV 81.0, MCH 25.5 L, MCHC 31.5 L, RDW 19.1 H, MPV 8.1, Gran % 76.1 H, Lymphocytes % 15.0 L, Monocytes % 8.7, Eosinophils % 0.1, Basophils % 0.1, Absolute Granulocytes 10.6 H, Absolute Lymphocytes 2.1, Absolute Monocytes 1.2 H, Absolute Eosinophils 0, Absolute Basophils 0 Recent Imaging Studies: Telemetry tracings were personally reviewed and shows sinus rhythm Transthoracic echocardiogram Poor echo window. Normal overall left ventricular systolic function.Right ventricle not well visualised. Minimal to mild Aortic stenosis. Assessment/Plan Assessment/Plan 1. Dyspnea; likely multifactorial 2. COPD 3. Heart failure with preserved ejection fraction 4. Likely venous insufficiency 5. Obesity 6. Hypertension 7. Diabetes 8. Hyperkalemia 9. Mild aortic stenosis Patient offers no new complaints. Echocardiogram was limited but showed grossly normal left ventricular function. She is now back on oral Lasix. COPD management per the medical team. Manual blood pressure documented at 130/70 today; additional adjustment of blood pressure medications as an outpatient. No significant events noted on telemetry overnight. Jose Chi MD [facility] Continue telemetry? No
[2018-01-15 14:37] VITALS: BP 140/85
[2018-01-15 21:53] VITALS: BP 180/100
[2018-01-16] VITALS (8 sets, daily range): BP systolic 120–184; BP diastolic 66–96
--- NOTE | 2018-01-16 07:25 | PN- Housestaff ---
Jonathan GARCIA,[facility] 01/16/18 0724: Subjective Follow-up For: AECOPD Subjective: Mrs Ta was seen and examined this morning. She is resting comfortably in bed. Denies any issues overnight. States that she feels well. Continues to have a cough with mild sputum production. She denies any fever, chills, nausea, vomiting. States that blood pressure was elevated this morning and is currently awaiting antihypertensive therapy therapy. Review of Systems Constitutional: Reports: see HPI. Objective Last 24 Hrs of Vital Signs/I&O Vital Signs Date Time Temp Pulse Resp B/P B/P Pulse O2 O2 Flow FiO2 Mean Ox Delivery Rate 01/16 1623 81 150/95 01/16 1600 81 20 150/95 91 Nasal Cannula 01/16 1535 Nasal 2.0L Cannula 01/16 1511 Nasal 2.0L Cannula 01/16 1354 99.2 75 20 120/66 95 Room Air 01/16 1045 158/82 01/16 0930 82 168/88 01/16 0800 95 Nasal 2.0L Cannula 01/16 0646 80 178/82 01/16 0639 98.7 67 20 184/96 97 01/16 0222 65 168/73 01/16 0004 68 170/78 01/16 0000 98 Nasal 2.0L Cannula 01/15 2244 72 180/100 01/15 2153 98.0 72 20 180/100 98 Nasal 2.0L Cannula 01/15 2135 Nasal 2.0L Cannula Intake & Output 01/16 1600 01/16 0800 01/16 0000 Intake Total 800 200 100 Output Total 750 200 Balance 50 200 -100 Intake, Oral 800 200 100 Number 1 Bowel Movements Output, Urine 750 200 Patient 99.422 kg 99.422 kg Weight Physical Exam General Appearance: Alert, Oriented X3, Cooperative, Mild Distress HEENT: Mucous Membr. moist/pink Cardiovascular: Regular Rate, Normal S1, Normal S2 Lungs: Reduced Air movement. Scattered Wheezing noted. Abdomen: Normal Bowel Sounds, Soft, No Tenderness Neurological: Normal Speech Vascular: Normal Pulses Current Medications: Current Medications Sig/Bao Start time Last Medication Dose Route Stop Time Status Admin Acetaminophen 650 MG Q6P PRN 01/12 0130 AC 01/16 PO 1924 Acetaminophen 1,000 MG Q6P PRN 01/12 130 AC IV Albuterol Sulfate 3 ML Q4-PRN PRN 01/13 0115 AC 01/13 INH 0101 Albuterol Sulfate 2 PUF Q4P PRN 01/12 1045 AC INH Atorvastatin Calcium 20 MG 1700 01/12 1700 AC 01/16 PO 1617 Benzonatate 100 MG TID 01/13 0045 AC 01/16 PO 1929 Calcium Carbonate 500 MG DAILY 01/13 0900 AC 01/16 PO 0931 Enoxaparin Sodium 40 MG DAILY 01/12 0900 AC 01/16 SC 0931 Ferrous Sulfate 325 MG DAILY 01/13 0900 AC 01/16 PO 0930 Furosemide 40 MG DAILY 01/15 0900 AC 01/16 PO 0930 Guaifenesin 10 ML Q4P PRN 01/15 1815 AC 01/15 PO 2013 Hydralazine HCl 10 MG ONCE ONE 01/16 0800 DC 01/16 PO 01/16 0801 0930 Hydralazine HCl 10 MG ONCE ONE 01/15 2245 DC 01/15 PO 01/15 224 2244 Insulin Aspart 0 TIDAC/HS 01/15 0800 AC 01/16 SC 1924 Insulin Detemir 15 UNITS BID 01/12 2100 AC 01/16 SC 0940 Losartan Potassium 50 MG DAILY 01/16 1345 AC 01/16 PO 1623 Omeprazole 40 MG DAILY AC 01/14 0700 AC 01/16 PO 0602 Polyethylene Glycol 17 GM AT BEDTIME PRN 01/12 0130 AC PO Prednisone 10 MG DAILY 01/20 0900 AC PO 01/21 0901 Prednisone 20 MG DAILY 01/18 0900 AC PO 01/19 0901 Prednisone 30 MG DAILY 01/17 0900 CAN PO 01/22 0859 Prednisone 30 MG DAILY 01/17 0900 AC PO 01/17 0901 Prednisone 30 MG DAILY 01/16 0900 DC 01/16 PO 0930 Prednisone 40 MG DAILY 01/13 0904 DC 01/15 PO 0903 Last 24 Hrs of Lab/Eric Results Last 24 Hrs of Labs/Mics: Laboratory Tests 01/16/18714: Anion Gap 5, Estimated GFR > 60, BUN/Creatinine Ratio 45.7 H, CBC w Diff NO MAN DIFF REQ, RBC 4.10 L, MCV 80.1 L, MCH 25.2 L, MCHC 31.5 L, RDW 19.0 H, MPV 7.9, Gran % 70.7, Lymphocytes % 19.3 L, Monocytes % 8.9, Eosinophils % 0.8, Basophils % 0.3, Absolute Granulocytes 9.8 H, Absolute Lymphocytes 2.7, Absolute Monocytes 1.2 H, Absolute Eosinophils 0.1, Absolute Basophils 0 Assessment/Plan Assessment: 72-year-old female with past medical history of hypertension, COPD not on home oxygen, insulin-dependent diabetes mellitus presented to the ED with chief complaint of bilateral lower extremity swelling. Assessment: 1. Acute Hypoxic Respiratory Failure 2. COPD Exacerbation 3. Hyperkalemia - resolved 4. Microcytosis 5. History of Hypertension 6. History of Diabetes Plan: * Continue oxygen supplementation to maintain target sats >92%. Stays on 2L. Will taper as tolerated * Losartan 50 mg added today due to hypertension. Will monitor. May consider addition of CCB if persistently elevated. * PO Lasix 40 mg * Continue PO Prednisone 40mg today. Will do a quick taper. * TRC/nebs as needed * Iron studies showed low Fe with normal ferritin and TIBC. With a borderline microcytosis would benefit from Fe supplementation. * Echocardiogram showed normal left ventricular systolic function. * Continue leg elevation * Appreciate cardio recs * Diet: CC1 * DVT Prophylaxis: SC Lovenox * Code: Full Code Problem List: 1. COPD exacerbation Pain Ratin Pain Location: No Pain Pain Goal: Remain pain free Pain Plan: Tylenol PRN Tomorrow's Labs & Rationales: CBC: Monitor WBC in the setting of acute illness BEP Monitor Electrolytes in the setting of acute illness. Cecily Armas 01/16/18 1524: Attending MD Review Statement Attending Statement Attending MD Statement: examined this patient, discuss w/resident/PA/FOREIGN LEGAL CONSULTANT, agreed w/resident/PA/FOREIGN LEGAL CONSULTANT, reviewed EMR data (avail), discussed with nursing, discussed with case mgmt Attending Assessment/Plan: Acute copd and chf exacerbation- swiched to po steroids and po lasix. Will cont to monitor closely . Awaiting placement. Case management working on that. d/w pt the care plan.
[2018-01-16] MEDS ORDERED: PREDNISONE10 M2 PO (07:51)
[2018-01-16] MEDS ORDERED: FERROUS SULFAT325 M3 PO (08:49)
[2018-01-16] MEDS ORDERED: ESOMEPRAZOLE MA40 M1 PO (08:53)
[2018-01-16] MEDS ORDERED: NEXIUM40 M1 PO (09:48)
[2018-01-16] MEDS ORDERED: GABAPENTIN300 M2 PO (09:50)
[2018-01-16] MEDS ORDERED: PROAIR HFA8.5 GM INH (09:51)
[2018-01-16 09:57] LABS: ABSOLUTE BASOPHIL COUNT 0 /CUMM (0.0-0.2); ABSOLUTE EOSINOPHIL COUNT 0.1 /CUMM (0.0-0.7); ABSOLUTE GRANULOCYTE CT 9.8 /CUMM (1.4-6.5); ABSOLUTE LYMPH COUNT 2.7 /CUMM (1.2-3.4); ABSOLUTE MONOCYTE COUNT 1.2 /CUMM (0.10-0.60); BASOPHIL % 0.3 % (0.0-2.0); EOSINOPHIL % 0.8 % (0-5); GRANULOCYTE % 70.7 % (42.2-75.2); HEMATOCRIT 32.8 % (37-47); MEAN CORPUSCULAR HGB 25.2 PG (27.0-31.0); MEAN CORPUSCULAR HGB CONC 31.5 G/DL (33.0-37.0); MEAN CORPUSCULAR VOLUME 80.1 FL (81.0-99.0); MEAN PLATELET VOLUME 7.9 FL (7.4-10.4); PLATELET COUNT 404 /CUMM (130-400); WHITE BLOOD CELL COUNT 13.9 /CUMM (4.8-10.8)
--- NOTE | 2018-01-16 10:34 | PN- Cardiology ---
Subjective Subjective: Patient appears comfortable. Awaiting lunch. Admits to no complaints. Objective Vital Signs and I&Os Vital Signs Date Time Temp Pulse Resp B/P B/P Pulse O2 O2 Flow FiO2 Mean Ox Delivery Rate 01/16 0930 82 168/88 01/16 0800 95 Nasal 2.0L Cannula 01/16 0646 80 178/82 01/16 0639 98.7 67 20 184/96 97 01/16 0222 65 168/73 01/16 0004 68 170/78 01/16 0000 98 Nasal 2.0L Cannula 01/15 2244 72 180/100 01/15 2153 98.0 72 20 180/100 98 Nasal 2.0L Cannula 01/15 2135 Nasal 2.0L Cannula 01/15 1600 Nasal 2.0L Cannula 01/15 1437 99.3 74 21 140/85 95 Nasal Cannula 01/15 1414 95 Nasal 1.5L Cannula Intake & Output 01/16 1600 01/16 0800 01/16 0000 01/15 1600 01/15 0800 01/15 0000 Intake Total 200 100 620 0 300 Output Total 200 550 650 850 Balance 200 -100 70 -650 -550 Intake, IV 20 0 Intake, Oral 200 100 600 300 Number 2 2 Bowel Movements Output, Urine 200 550 650 850 Patient 219 lb 230 lb Weight Physical Exam: On general exam she appeared moderately obese Head normocephalic atraumatic Eyes sclera anicteric conjunctiva showed no pallor extraocular muscles were normal Neck no jugular venous distention no thyroid masses no palpable nodes Chest lungs were clear bilaterally Heart regular rhythm with a 1/6 systolic murmur Abdomen protuberant soft nontender Extremities no clubbing cyanosis or edema Neurological no gross motor or sensory deficits Current Medications: Current Medications Sig/Bao Start time Last Medication Dose Route Stop Time Status Admin Acetaminophen 650 MG .STK-MED ONE 01/15 2011 DC PO 01/16 2012 Acetaminophen 650 MG Q6P PRN 01/12 0130 AC 01/15 PO 2012 Acetaminophen 1,000 MG Q6P PRN 01/12 0130 AC IV Albuterol Sulfate 3 ML Q4-PRN PRN 01/13 0115 AC 01/13 INH 0101 Albuterol Sulfate 2 PUF Q4P PRN 01/12 1045 AC INH Atorvastatin Calcium 20 MG 1700 01/12 1700 AC 01/15 PO 1640 Benzonatate 100 MG TID 01/13 0045 AC 01/16 PO 0930 Calcium Carbonate 500 MG DAILY 01/13 09 AC 01/16 PO 0931 Enoxaparin Sodium 40 MG DAILY 01/12 09 AC 01/16 SC 0931 Ferrous Sulfate 325 MG DAILY 01/13 09 AC 01/16 PO 0930 Furosemide 40 MG DAILY 01/15 0900 AC 01/16 PO 0930 Guaifenesin 10 ML Q4P PRN 01/15 1815 AC 01/15 PO 2012 Hydralazine HCl 10 MG ONCE ONE 01/16 08 TN 01/16 PO 01/16 0801 0930 Hydralazine HCl 10 MG ONCE ONE 01/15 2245 DC 01/15 PO 01/15 224 224 Insulin Aspart 0 TIDAC/HS 01/15 08 01/15 SC 2127 Insulin Detemir 15 UNITS BID 01/12 2100 AC 01/16 SC 0940 Omeprazole 40 MG DAILY AC 01/14 0700 AC 01/16 PO 0602 Polyethylene Glycol 17 GM AT BEDTIME PRN 01/12 0130 PO Prednisone 30 MG DAILY 01/16 09 01/16 PO 0930 Prednisone 40 MG DAILY 01/13 0904 TN 01/15 PO 0903 Results Last 48 Hrs of Labs/Mics: Laboratory Tests 01/16/18 0715: Anion Gap 5, Estimated GFR > 60, BUN/Creatinine Ratio 45.7 H, CBC w Diff Pending, WBC Pending, RBC Pending, Hgb Pending, Hct Pending, MCV Pending, MCH Pending, MCHC Pending, RDW Pending, Plt Count Pending, MPV Pending 01/15/18 0630: Anion Gap 7, Estimated GFR > 60, BUN/Creatinine Ratio 58.8 H, CBC w Diff NO MAN DIFF REQ, RBC 4.26, MCV 80.6 L, MCH 25.4 L, MCHC 31.5 L, RDW 18.9 H, MPV 8.1 , Gran % 73.9, Lymphocytes % 16.4 L, Monocytes % 9.1, Eosinophils % 0.2, Basophils % 0.4, Absolute Granulocytes 11.9 H, Absolute Lymphocytes 2.6, Absolute Monocytes 1.5 H, Absolute Eosinophils 0, Absolute Basophils 0.1 Assessment/Plan Assessment/Plan In summary this 72-year-old female has a following problems 1. Dyspnea; likely multifactorial, CTA showed no pulmonary embolism, echocardiogram revealed normal left ventricular systolic function and chest x- ray showed no clinical evidence or radiological evidence of heart failure 2. COPD 3. Heart failure with preserved ejection fraction 4. Likely venous insufficiency 5. Obesity 6. Hypertension 7. Diabetes 8. Hyperkalemia 9. Mild aortic stenosis Her blood pressure seems somewhat elevated. I would probably add losartan 50 mg daily. If blood pressure still not controlled amlodipine 5 mg can be added to angiotensin receptor debra. Continue telemetry? Not applicable
[2018-01-17 06:58] VITALS: BP 144/78
--- NOTE | 2018-01-17 07:27 | PN- Housestaff ---
See Addendum Subjective Follow-up For: AECOPD Subjective: Ms Ta was seen and examined this morning. Reports no issues overnight. States her breathing is better. Has been tolerateing PO intake well. Denies any cough. Denies fever, chills, nausea or vomiting. Review of Systems Constitutional: Reports: see HPI. Objective Last 24 Hrs of Vital Signs/I&O Vital Signs Date Time Temp Pulse Resp B/P B/P Pulse O2 O2 Flow FiO2 Mean Ox Delivery Rate 01/17 0955 98.1 68 20 128/68 01/17 0913 68 144/78 01/17 0800 93 Nasal 2.0L Cannula 01/17 0658 98.1 68 20 144/78 93 01/17 0000 94 Nasal 1.5L Cannula 01/16 2246 97.9 86 20 142/74 94 Nasal Cannula 01/16 1623 81 150/95 01/16 1600 Nasal 1.5L Cannula 01/16 1600 81 20 150/95 91 Nasal Cannula 01/16 1535 Nasal 2.0L Cannula 01/16 1511 Nasal 2.0L Cannula 01/16 1354 99.2 75 20 120/66 95 Room Air Intake & Output 01/17 1600 01/17 0800 01/17 0000 Intake Total 120 300 Output Total 200 400 Balance -200 120 -100 Intake, Oral 120 300 Number 1 1 Bowel Movements Output, Urine 200 400 Patient 101.661 kg Weight Physical Exam General Appearance: Alert, Oriented X3 HEENT: Mucous Membr. moist/pink, Nasal Canula in place. Lymphatic: Cervical nl Cardiovascular: Regular Rate, Normal S1, Normal S2 Lungs: Clear to Auscultation Abdomen: Normal Bowel Sounds, Soft, No Tenderness Extremities: No Edema Current Medications: Current Medications Sig/Bao Start time Last Medication Dose Route Stop Time Status Admin Acetaminophen 650 MG .STK-MED ONE 01/16 1923 DC PO 01/17 1924 Acetaminophen 650 MG Q6P PRN 01/12 013 AC 01/16 PO 192 Acetaminophen 1,000 MG Q6P PRN 01/12 013 AC IV Albuterol Sulfate 3 ML Q4-PRN PRN 01/13 0115 AC 01/13 INH 0101 Albuterol Sulfate 2 PUF Q4P PRN 01/12 1045 AC INH Atorvastatin Calcium 20 MG 1700 01/12 1700 AC 01/16 PO 1617 Benzonatate 100 MG TID 01/13 0045 AC 01/17 PO 0912 Calcium Carbonate 500 MG DAILY 01/13 0900 AC 01/17 PO 0912 Enoxaparin Sodium 40 MG DAILY 01/12 0900 AC 01/17 SC 0912 Ferrous Sulfate 325 MG DAILY 01/13 0900 AC 01/17 PO 0912 Furosemide 40 MG DAILY 01/15 0900 AC 01/17 PO 0912 Guaifenesin 10 ML Q4P PRN 01/15 1815 AC 01/15 PO 2013 Insulin Aspart 0 TIDAC/HS 01/15 0800 AC 01/17 SC 1202 Insulin Detemir 15 UNITS BID 01/12 2100 AC 01/17 SC 0920 Losartan Potassium 50 MG DAILY 01/16 1345 AC 01/17 PO 0913 Omeprazole 40 MG DAILY AC 01/14 0700 AC 01/17 PO 0635 Polyethylene Glycol 17 GM AT BEDTIME PRN 01/12 0130 AC PO Prednisone 10 MG DAILY 01/20 0900 AC PO 01/21 0901 Prednisone 20 MG DAILY 01/18 0900 AC PO 01/19 0901 Prednisone 30 MG DAILY 01/17 0900 CAN PO 01/22 0859 Prednisone 30 MG DAILY 01/17 0900 DC 01/17 PO 01/17 0901 0912 Prednisone 30 MG DAILY 01/16 0900 DC 01/16 PO 0930 Last 24 Hrs of Lab/Eric Results Last 24 Hrs of Labs/Mics: Laboratory Tests 01/17/18 1156: Anion Gap 6, Estimated GFR > 60, BUN/Creatinine Ratio 43.8 H, CBC w Diff MAN DIFF ORDERED, RBC 4.22, MCV 80.5 L, MCH 25.5 L, MCHC 31.6 L, RDW 19.3 H, MPV 7.8, Gran % 84.7 H, Lymphocytes % 9.9 L, Monocytes % 4.4, Eosinophils % 1.0, Basophils % 0, Absolute Granulocytes 17.2 H, Absolute Lymphocytes 2.0, Absolute Monocytes 0.9 H, Absolute Eosinophils 0.2, Absolute Basophils 0, Platelet Estimate ADEQUATE, Poikilocytosis 1+, Anisocytosis 1+, Ovalocytes 1+ Assessment/Plan Assessment: 72-year-old female with past medical history of hypertension, COPD not on home oxygen, insulin-dependent diabetes mellitus presented to the ED with chief complaint of bilateral lower extremity swelling. Assessment: 1. Acute Hypoxic Respiratory Failure 2. COPD Exacerbation 3. Hyperkalemia - resolved 4. Microcytosis 5. History of Hypertension 6. History of Diabetes Plan: * Continue oxygen supplementation to maintain target sats >92%. Stays on 2L. Will taper as tolerated * Losartan 50 mg added 01/16, BP better controlled,will continue. r. May consider addition of CCB if persistently elevated. * PO Lasix 40 mg * Continue PO Prednisone 30mg today. Will do a quick taper. * Labs this morning pending will consider discharge if all stable. She will likely be discharged to [facility] and plans are to wean down or wean off oxygen and then be sent home. * TRC/nebs as needed * Iron studies showed low Fe with normal ferritin and TIBC. With a borderline microcytosis would benefit from Fe supplementation. * Echocardiogram showed normal left ventricular systolic function. * Continue leg elevation * Appreciate cardio recs * Diet: CC1 * DVT Prophylaxis: SC Lovenox * Code: Full Code Problem List: 1. COPD exacerbation 2. Leukocytosis Pain Ratin Pain Location: No Pain Pain Goal: Remain pain free Pain Plan: Tylenol PRN Tomorrow's Labs & Rationales: CBC and BEP if not discharged.
[2018-01-17 09:55] VITALS: BP 128/68
[2018-01-17] MEDS ORDERED: LOSARTAN POTASS50 M1 PO (12:00)
[2018-01-17] MEDS ORDERED: PREDNISONE10 M2 PO (12:00)
[2018-01-17 12:38] LABS: ABSOLUTE BASOPHIL COUNT 0 /CUMM (0.0-0.2); ABSOLUTE EOSINOPHIL COUNT 0.2 /CUMM (0.0-0.7); ABSOLUTE GRANULOCYTE CT 17.2 /CUMM (1.4-6.5); ABSOLUTE MONOCYTE COUNT 0.9 /CUMM (0.10-0.60); BASOPHIL % 0 % (0.0-2.0); GRANULOCYTE % 84.7 % (42.2-75.2); MEAN CORPUSCULAR HGB 25.5 PG (27.0-31.0); MEAN CORPUSCULAR HGB CONC 31.6 G/DL (33.0-37.0); MEAN CORPUSCULAR VOLUME 80.5 FL (81.0-99.0); MEAN PLATELET VOLUME 7.8 FL (7.4-10.4); PLATELET COUNT 388 /CUMM (130-400); RBC DISTRIBUTION WIDTH 19.3 % (11.5-14.5); RED BLOOD CELL CT 4.22 /CUMM (4.20-5.40); WHITE BLOOD CELL COUNT 20.4 /CUMM (4.8-10.8)
[2018-01-17 14:55] LABS: ABSOLUTE BASOPHIL COUNT 0.1 /CUMM (0.0-0.2); ABSOLUTE EOSINOPHIL COUNT 0 /CUMM (0.0-0.7); ABSOLUTE GRANULOCYTE CT 19.3 /CUMM (1.4-6.5); ABSOLUTE MONOCYTE COUNT 0.2 /CUMM (0.10-0.60); BASOPHIL % 0.6 % (0.0-2.0); EOSINOPHIL % 0.2 % (0-5); GRANULOCYTE % 93.3 % (42.2-75.2); HEMATOCRIT 35.3 % (37-47); MEAN CORPUSCULAR HGB 25.5 PG (27.0-31.0); MEAN CORPUSCULAR HGB CONC 31.8 G/DL (33.0-37.0); MEAN CORPUSCULAR VOLUME 80.2 FL (81.0-99.0); MEAN PLATELET VOLUME 7.9 FL (7.4-10.4); PLATELET COUNT 397 /CUMM (130-400); RBC DISTRIBUTION WIDTH 18.4 % (11.5-14.5); RED BLOOD CELL CT 4.41 /CUMM (4.20-5.40)
[2018-01-17 15:10] VITALS: BP 160/84
[2018-01-17 15:15] LABS: WHITE BLOOD CELL COUNT 20.7 /CUMM (4.8-10.8)
[2018-01-17 21:40] VITALS: BP 160/70
[2018-01-18 07:31] VITALS: BP 159/94
[2018-01-18 08:34] VITALS: BP 159/94
[2018-01-18 08:43] LABS: ABSOLUTE BASOPHIL COUNT 0 /CUMM (0.0-0.2); ABSOLUTE EOSINOPHIL COUNT 0.2 /CUMM (0.0-0.7); ABSOLUTE GRANULOCYTE CT 11.3 /CUMM (1.4-6.5); ABSOLUTE LYMPH COUNT 3.2 /CUMM (1.2-3.4); ABSOLUTE MONOCYTE COUNT 1.1 /CUMM (0.10-0.60); BASOPHIL % 0.2 % (0.0-2.0); EOSINOPHIL % 1.5 % (0-5); GRANULOCYTE % 71.3 % (42.2-75.2); HEMATOCRIT 33.8 % (37-47); MEAN CORPUSCULAR HGB 25.5 PG (27.0-31.0); MEAN CORPUSCULAR HGB CONC 31.7 G/DL (33.0-37.0); MEAN CORPUSCULAR VOLUME 80.3 FL (81.0-99.0); MEAN PLATELET VOLUME 7.9 FL (7.4-10.4); PLATELET COUNT 353 /CUMM (130-400); RBC DISTRIBUTION WIDTH 19.3 % (11.5-14.5); RED BLOOD CELL CT 4.21 /CUMM (4.20-5.40); WHITE BLOOD CELL COUNT 15.9 /CUMM (4.8-10.8)
[2018-01-18] MEDS ORDERED: PREDNISONE10 M2 PO ×3 (10:48→11:34)
[2018-01-18] MEDS ORDERED: FERROUS SULFAT325 M3 PO (11:34)
[2018-01-18] MEDS ORDERED: LOSARTAN POTASS50 M1 PO (11:34)
--- NOTE | 2018-01-18 16:06 | PN- Att Addend ---
Assessment/Plan Assessment/Plan 72-year-old female with past medical history of hypertension, COPD not on home oxygen, insulin-dependent diabetes mellitus presented to the ED with chief complaint of bilateral lower extremity swelling and SOB. Assessment/Plan: 1. Acute Hypoxic Respiratory Failure secondary to chf exac and copd exac. Pt was initially treated with iv diuresis and later switched to po lasix 2. COPD Exacerbation- treated with iv steroids initially and later swtiched to prednisone taper. 3. Hyperkalemia - resolved Consult Acknowledgment - Thank you for your consult request. Review of Systems Review of Systems Constitutional: Denies: chills, fever. Cardiovascular: Denies: chest pain, palpitations. Respiratory: Denies: cough. GI: Denies: abdominal pain. PHYSICAL EXAM Last 24hrs of Vital Signs Vital Signs Date Time Temp Pulse Resp B/P B/P Pulse O2 O2 Flow FiO2 Mean Ox Delivery Rate 01/18 0834 77 159/94 01/18 0800 93 Nasal 2.0L Cannula 01/18 0731 98.1 77 20 159/94 97 Nasal 2.0L Cannula 01/17 2140 97.7 72 18 160/70 96 Nasal 2.0L Cannula Physical Exam General Appearance Alert, No Acute Distress HEENT EOMI Cardiovascular Regular Rate, Normal S1, Normal S2 Lungs Normal Air Movement Abdomen Soft, No Tenderness Neurological Cranial Nerves 3-12 NL Extremities No Cyanosis ITS Data EKG Results NSR, HR 75, QTC 443, no ST-T wave changes Other Results CTA: No evidence of acute or chronic pulmonary emboli. Partially healed fracture of the right posterior eleventh rib.
== END 2018-01-18 12:40 | DRG 194 ==
LOC: ERH 17:16 → 1NO 20:58 → 2NB 20:58 → ERHI 20:58 → ENRESERV 21:28 → ENTRNSPT 21:53 → 1NO 22:22 → EDTRNSPTSTS 22:23 → 1NO 22:25 → CMPTRNSPT 22:42 → 1NO 01-13 07:29 → 2NB 01-15 19:56 → 1NO 01-15 20:00 → ENTRNSPT 01-15 21:03 → EDTRNSPTSTS 01-15 21:22 → EDTRNSPT 01-15 21:22 → 2NB 01-15 21:36 → CMPTRNSPT 01-15 21:45 → 2NB 01-16 08:35
PROVIDERS: Internal Medicine; Physician Assistant Medical; Student in an Organized Health Care Education/Training Program
DX: I11.0 Hypertensive heart disease with heart failure (principal); J44.0 Chronic obstructive pulmonary disease with (acute) lower respiratory infection; J44.1 Chronic obstructive pulmonary disease with (acute) exacerbation; J96.21 Acute and chronic respiratory failure with hypoxia; Z68.41 Body mass index [BMI] 40.0-44.9, adult; I50.33 Acute on chronic diastolic (congestive) heart failure; J20.9 Acute bronchitis, unspecified; E11.9 Type 2 diabetes mellitus without complications; Z79.4 Long term (current) use of insulin; E87.5 Hyperkalemia; E66.01 Morbid (severe) obesity due to excess calories; I35.0 Nonrheumatic aortic (valve) stenosis
CPT/HCPCS: 1NP; 2NBP; 36415; 36592; 71045; 74018; 81001; 82436; 87086; 93005; 93010; 93306; 96374; 97110-GO; 97116-GO; 97161-GP; 97530-GO; 99291; J0456; J0610; J1650; J1815; J1940; J2920; J2930; J3490; J7040; J7512